=== PATIENT | female | born 1980 | race African-American/Black ===

== ENCOUNTER 2017-09-06 22:37 | Observation (INO) | payer SELFPAY ==
--- NOTE | 2017-09-06 22:57 | RAD ---
CHEST ONE VIEW 09/06/17 HISTORY: Chest pain. COMPARISON: None. FINDINGS: The heart size is markedly enlarged. No focal air space consolidation, pneumothorax or effusion. No a cute osseous abnormality. IMPRESSION: Marked cardiomegaly. POS: [facility]
[2017-09-06 23:12] LABS: Hemoglobin 10.7 g/dL (12.0-16.0); Mean Corpuscular HGB CONC 31.6 g/dL (32.0-36.0); Mean Corpuscular Hemoglobin 23.1 pg (27.0-31.0); Mean Corpuscular Volume 73.2 fl (81.0-99.0); Mean Platelet Volume 9.7 fL (7.4-10.4); Platelet Count 243 thou/uL (130-400); RBC Distribution Width 14.4 % (11.5-14.5); Red Blood Cell (RBC) Count 4.61 mill/uL (4.20-5.40); White Blood Cell (WBC) Count 6.4 thou/uL (4.8-10.8)
[2017-09-06] MEDS ORDERED: Nitroglycerin 2% Ointment 1 INCH/1 GM Packet ONE (23:24)
[2017-09-06] MEDS ORDERED: Nitroglycerin 0.4 MG TAB (25 Tab Bottle) ONE (23:24)
[2017-09-06 23:28] LABS: ALT (SGPT) 13 U/L (8-55); AST (SGOT) 21 U/L (5-34); Albumin 3.5 g/dL (3.5-5.0); Alkaline Phosphatase 80 U/L (40-150); Anion Gap 11 mmol/L (10-20); BUN (Urea Nitrogen) 9 mg/dL (7.0-18.7); Bilirubin, Total 0.2 mg/dL (0.2-1.2); CK (CPK) 55 U/L (29-168); Calc. Creatinine Clearance 0 mL/min (70-130); Calcium 8.3 mg/dL (7.8-10.44); Carbon Dioxide 23 mmol/L (22-29); Chloride 108 mmol/L (98-107); Estimated GFR-MDRD Greater than 90; Globulin 3.3 g/dL (2.4-3.5); Glucose 104 mg/dL (70-105); Lipase 90 U/L (8-78); Potassium 4.1 mmol/L (3.5-5.1); Protein, Total 6.8 g/dL (6.0-8.3); Sodium 138 mmol/L (136-145)
[2017-09-06 23:30] LABS: CKMB 0.8 ng/mL (0-6.6); Troponin I Less than 0.010 ng/mL (< 0.028)
[2017-09-06 23:51] LABS: #Eosinphils 0.2 thou/uL (0.0-0.7); #Lymphocytes 2.2 thou/uL (1.20-3.40); #Monocytes 0.4 thou/uL (0.11-0.59); #Neutrophils 3.6 thou/uL (1.40-6.50); %Basophils 0.6 % (0.0-1.0); %Eosinophils 2.8 % (0.0-10.0); %Lymphocytes 33.8 % (21.0-51.0); %Monocytes 5.7 % (0.0-10.0); %Neutrophils 57.1 % (42.0-75.0); MDiff Complete? YES; Microcytosis SLIGHT = 6-15 cells (100X) (0-5/hpf)
[2017-09-07] MEDS ORDERED: Lisinopril 10 MG TAB ONE (00:22)
[2017-09-07] MEDS ORDERED: hydrALAZINE 20 MG/ML VIAL ONE ×3 (00:22→12:19)
[2017-09-07] MEDS ORDERED: Acetaminophen 500 MG TAB ONE ×2 (00:35→04:59)
[2017-09-07] MEDS ORDERED: Labetalol HCl 100 MG/20 ML VIAL ONE (01:32)
[2017-09-07 03:03] LABS: Troponin I 0.026 ng/mL (< 0.028)
[2017-09-07] MEDS ORDERED: hydrALAZINE 20 MG/ML VIAL SLOW IVP PRN ×2 (04:59→07:41)
[2017-09-07 05:41] LABS: Troponin I 0.017 ng/mL (< 0.028)
[2017-09-07] MEDS ORDERED: Sodium Chloride 0.9% 1,000 ML IV SCH (05:48)
[2017-09-07] MEDS ORDERED: Acetaminophen 325 MG TAB PO PRN (05:48)
[2017-09-07] MEDS ORDERED: Guaifenesin DM 100-10/5 ML UDCUP PO PRN (05:48)
[2017-09-07] MEDS ORDERED: Ondansetron HCl/PF 4 MG/2 ML Vial IVP PRN (05:48)
[2017-09-07] MEDS ORDERED: Nitroglycerin 2% Ointment 1 INCH/1 GM Packet TOP SCH (06:00)
[2017-09-07 06:14] LABS: Cardiac Risk 2.3 (Less than 4.5)
[2017-09-07 06:15] LABS: Acetaminophen Less than 6.0 mcg/mL (10.0-30.0); Alcohol Less than 10 mg/dL (Less than 10); Salicylate Less than 8.0 mg/dL (15.0-30.0)
--- NOTE | 2017-09-07 07:03 | HP ---
REASON FOR ADMISSION: Hypertensive urgency, chest pain. HISTORY OF PRESENT ILLNESS: The patient gives history of having retrosternal chest pain with radiation to the left half of her chest which started around 3: 00 p.m. yesterday when she was taking a nap. This got worse with further tightening in her chest. She has cough with expectoration of yellow sputum. No complaints of fever. No complaints of palpitation, PND or orthopnea. As the chest tightness got worse the patient made it to the emergency room. PAST MEDICAL/SURGICAL HISTORY: History of hypertension, not on any medication, obesity. CURRENT MEDICATIONS: The patient is supposed to take her lisinopril and hydrochlorothiazide, has been off it for the last month or so. ALLERGIES: No known drug allergies. PERSONAL HISTORY: Smokes half pack a day. Uses marijuana on occasions, alcohol on social occasions. The patient states she stopped using cocaine a few months ago. She lives with her . Has 3 children. FAMILY HISTORY: Mother has high blood pressure. Father is healthy. REVIEW OF SYSTEMS: The following complete review of systems was negative, unless otherwise mentioned in the HPI or below: Constitutional: Weight loss or gain, ability to conduct usual activities. Skin: Rash, itching. Eyes: Double vision, pain. ENT/Mouth: Nose bleeding, neck stiffness, pain, tenderness. Cardiovascular: Palpitations, dyspnea on exertion, orthopnea. Respiratory: Shortness of breath, wheezing, cough, hemoptysis, fever or night sweats. Gastrointestinal: Poor appetite, abdominal pain, heartburn, nausea, vomiting, constipation, or diarrhea. Genitourinary: Urgency, frequency, dysuria, nocturia. Musculoskeletal: Pain, swelling. Neurologic/Psychiatric: Anxiety, depression. Allergy/Immunologic: Skin rash, bleeding tendency. PHYSICAL EXAMINATION: GENERAL: The patient is a 36-year-old female who is currently not in any acute distress. VITAL SIGNS: The patient's initial blood pressure reading on arrival was 237/ 129. Currently, it is around 170/109, pulse 82 per minute, respiratory rate 16 per minute, temperature 98.4 degrees Fahrenheit, saturating 100% on room air. NECK: Supple, no elevated JVD. HEENT: Eyes; extraocular muscles intact. Pupils reacting to light. Oral cavity; mucous membranes are moist. No exudates or congestion. CARDIOVASCULAR: S1, S2 heard. Loud S2, no murmur. RESPIRATORY: Air entry 1+ bilaterally. No rales or rhonchi. ABDOMEN: Soft, bowel sounds heard. No tenderness, rigidity or guarding. EXTREMITIES: No peripheral edema or calf tenderness. VASCULAR SYSTEM: Peripheral pulses 1+ bilateral, no ischemic ulcerations or gangrene. CENTRAL NERVOUS SYSTEM: No gross focal deficits seen. Patient is alert, awake , oriented well. PSYCHIATRIC: The patient's mood is euthymic. No hallucinations or delusions. LABORATORY AND X-RAY FINDINGS: Chest x-ray done shows marked cardiomegaly, no acute infiltrate. EKG done shows normal sinus rhythm at 89 beats per minute. There are signs of LVH. Troponin x2 is negative. CK-MB 0.8, albumin is 3.5. Lipase is 90. Liver enzymes are within normal limits. Electrolytes stable. BUN 9, creatinine 0.8, glucose 104. White count of 6, H&H 10 and 33, platelet count is 243 with 57% neutrophils, MCV is 73. CLINICAL IMPRESSION AND PLAN: The patient will be under observation on telemetry for hypertensive urgency with chest pain. The patient is off of her medications for almost a month now. The patient also admits to using marijuana and stopped cocaine a few months back. In view of this, we will obtain a urine drug screen. The patient has signs of LVH on the EKG. Echo with 2D Doppler for LV function will be obtained. A nuclear stress test will be obtained if her urine drug screen is negative. She is currently on nitro paste half inch q.8 hourly. We will continue her on lisinopril 10 mg twice daily and hydrochlorothiazide 25 mg daily. She will be on full dose of aspirin. The patient was counseled with regards to medication compliance and followup with her primary care physician. CODE STATUS: Full. This was discussed with the patient. DAHLIA
[2017-09-07 07:20] LABS: Cocaine Metabolite Screen Detected (NotDetected); Medtox Reader # READER 1
[2017-09-07 07:21] LABS: Amphetamine Not Detected (NotDetected); Barbiturates Screen Not Detected (NotDetected); Benzodiazepine Screen Not Detected (NotDetected); Medtox Control Line Valid? VALID (VALID); Methadone Not Detected (NotDetected); Methamphetamine Not Detected (NotDetected); Opiate Screen Not Detected (NotDetected); Oxycodone Screen Not Detected (NotDetected); Phencyclidine (PCP) Not Detected (NotDetected); THC/Cannabinoid Screen Detected (NotDetected); Tricyclic Screen Not Detected (NotDetected)
[2017-09-07] MEDS ORDERED: Sodium Chloride 0.65% Nasal 44 ML BOT EA NARE PRN (07:41)
[2017-09-07] MEDS ORDERED: Chloraseptic Spray 180 ml Bottle PO PRN (07:41)
[2017-09-07] MEDS ORDERED: Eucerin (Mineral Oil/Petrolatum,White) 30 gm Jar TOP PRN (07:41)
[2017-09-07] MEDS ORDERED: Diabetic Tussin 200 MG/10 ML UDCUP PO PRN (07:41)
[2017-09-07] MEDS ORDERED: Temazepam 15 MG CAP PO PRN (07:41)
[2017-09-07] MEDS ORDERED: Mag-Al 1200 mg/1200 mg/30 ML UDCUP PO PRN (07:41)
[2017-09-07] MEDS ORDERED: Milk Of Magnesia 30 ML UDCUP PO PRN (07:41)
[2017-09-07] MEDS ORDERED: Artificial Tears 18 DROP/0.9 ML EA EYE PRN (07:41)
[2017-09-07] MEDS ORDERED: Ondansetron ODT 4 MG TAB PO PRN (07:41)
[2017-09-07] MEDS ORDERED: HYDROcodone/Acetaminophen 5/325 mg Tablet PO PRN (07:41)
[2017-09-07] MEDS ORDERED: Ondansetron ODT 4 MG TAB ONE (07:41)
[2017-09-07] MEDS ORDERED: Loratadine 10 MG TAB PO PRN (07:41)
[2017-09-07] MEDS ORDERED: Loperamide HCl 2 MG CAP PO PRN (07:41)
[2017-09-07] MEDS ORDERED: Aspirin 325 MG TAB PO SCH (09:00)
[2017-09-07] MEDS ORDERED: Aspirin 325 MG TAB ONE (09:18)
[2017-09-07] MEDS ORDERED: Enoxaparin Sodium 40 MG/0.4 ML SYRINGE ONE (09:18)
[2017-09-07] MEDS ORDERED: Famotidine 20 MG TAB ONE (09:18)
[2017-09-07] MEDS ORDERED: Sodium Ferric Gluconate 250 MG in Sodium Chloride 0.9% 100 ML IVPB SCH (11:15)
--- NOTE | 2017-09-07 12:37 | PDOC.PN ---
- Subjective Encounter Start Date: 09/07/17 Encounter Start Time: 09:45 -: old records requested/rev Patient seen and examined for hypertensive urgency. No new complaints. No overnight events - Objective Resuscitation Status: Resuscitation Status FULL:Full Resuscitation MAR Reviewed: Yes Result Diagrams: 09/06/17 22:51 09/06/17 22:51 Radiology Reviewed by me: Yes (chest xray- cardiomegaly, left ankle xray-normal) EKG Reviewed by me: Yes (nsr) Phys Exam - Physical Examination Constitutional: NAD HEENT: PERRLA, moist MMs, sclera anicteric Neck: no nodes, no JVD, supple, full ROM Respiratory: no wheezing, no rales, no rhonchi Cardiovascular: RRR, no significant murmur, no rub Gastrointestinal: soft, non-tender, no distention, positive bowel sounds Musculoskeletal: no edema, pulses present Neurological: non-focal, normal sensation, moves all 4 limbs Lymphatic: no nodes Psychiatric: normal affect, A&O x 3 Skin: no rash, normal turgor, cap refill <2 seconds Dx/Plan (1) Hypertensive urgency Code(s): I16.0 - HYPERTENSIVE URGENCY Status: Acute (2) Hypertensive cardiomegaly Code(s): I11.9 - HYPERTENSIVE HEART DISEASE WITHOUT HEART FAILURE Status: Acute (3) Left ankle sprain Code(s): S93.402A - SPRAIN OF UNSPECIFIED LIGAMENT OF LEFT ANKLE, INIT ENCNTR Status: Acute (4) Microcytic anemia Code(s): D50.9 - IRON DEFICIENCY ANEMIA, UNSPECIFIED Status: Chronic Comment : iron deficiency anemia (5) Polysubstance abuse Code(s): F19.10 - OTHER PSYCHOACTIVE SUBSTANCE ABUSE, UNCOMPLICATED Status: Chronic - Plan cont current plan of care * continue pain control with prn pain meds * will monitor blood pressure and adjust BP meds * counselling given regarding healthy life style and avoidance of polysubstance abuse including tobacco, alcohol, coccaine and marijuanna * medication reviewed as below * symptomatic treatment * today plan for stress test * echo pending result * ferritin checked and low, will start ferrous sulfate bid and give one dose of parenteral iron * check lipid profile * monitor today. * will give prescription for lisinopril 20/25 daily * clonidine prn basis Review of Systems - Review of Systems Constitutional: negative: fever, chills, sweats, weakness, malaise, other Eyes: negative: Pain, Vision Change, Conjunctivae Inflammation, Eyelid Inflammation, Redness, Other ENT: negative: Ear Pain, Ear Discharge, Nose Pain, Nose Discharge, Nose Congestion, Mouth Pain, Mouth Swelling, Throat Pain, Throat Swelling, Other Respiratory: negative: Cough, Dry, Shortness of Breath, Hemoptysis, SOB with Excertion, Pleuritic Pain, Sputum, Wheezing Cardiovascular: chest pain. negative: palpitations, orthopnea, paroxysmal nocturnal dyspnea, edema, light headedness, other Gastrointestinal: Nausea. negative: Vomiting, Abdominal Pain, Diarrhea, Constipation, Melena, Hematochezia, Other Genitourinary: negative: Dysuria, Frequency, Incontinence, Hematuria, Retention , Other Musculoskeletal: Other (left ankle). negative: Neck Pain, Shoulder Pain, Arm Pain, Back Pain, Hand Pain, Leg Pain, Foot Pain Skin: negative: Rash, Lesions, Eduard, Bruising, Other Neurological: Other (headache). negative: Weakness, Numbness, Incoordination, Change in Speech, Confusion, Seizures - Medications/Allergies Allergies/Adverse Reactions: Allergies Allergy/AdvReac Type Severity Reaction Status Date / Time No Known Drug Allergies Allergy Verified 09/07/17 04:57 Medications: Current Medications Acetaminophen (Tylenol) 650 mg PO Q4H PRN PRN Reason: Headache/Fever or Pain Hydrocodone Bitart/Acetaminophen ([place] 5/325) 1 tab PO Q4H PRN PRN Reason: Moderate Pain (4-6) Al Hydroxide/Mg Hydroxide (Maalox) 15 ml PO Q4H PRN PRN Reason: Heartburn or Indigestion Artificial Tears (Tears Naturale) 0 drop EA EYE PRN PRN PRN Reason: Dry Eyes Aspirin (Aspirin) 325 mg PO DAILY [facility] Clonidine (Catapres) 0.1 mg PO Q4H PRN PRN Reason: Systolic BP > 180 Docusate Sodium (Colace) 100 mg PO BID [facility] Enoxaparin Sodium (Lovenox) 40 mg SC 0900 [facility] Famotidine (Pepcid) 20 mg PO BID [facility] Ferrous Sulfate (Feosol) 325 mg PO BID-[facility] Guaifenesin (Robitussin Sf) 200 mg PO Q4H PRN PRN Reason: Cough Guaifenesin/Dextromethorphan (Robitussin Dm) 15 ml PO Q4H PRN PRN Reason: Cough Hydralazine HCl (Apresoline) 10 mg SLOW IVP Q4H PRN PRN Reason: Systolic BP > 180 Hydrochlorothiazide (Hydrochlorothiazide) 25 mg PO DAILY [facility] Ferric Sodium Gluconate Complex 250 mg/ Sodium Chloride 120 mls @ 60 mls/hr IVPB NOW [facility] Stop: 09/07/17 14:00 Lisinopril (Zestril) 10 mg PO BID [facility] Loperamide HCl (Imodium) 2 mg PO PRN PRN PRN Reason: Diarrhea/Loose Stools Loratadine (Claritin) 10 mg PO DAILYPRN PRN PRN Reason: Sinus Symptoms Magnesium Hydroxide (Milk Of Magnesium) 30 ml PO DAILYPRN PRN PRN Reason: Constipation Mineral Oil/White Petrolatum (Eucerin Cream) 0 gm TOP BIDPRN PRN PRN Reason: Dry Skin Nitroglycerin (Nitro-Bid 2% Ointment) 0.5 inch TOP Q8HR [facility] Ondansetron HCl (Zofran) 4 mg IVP Q6H PRN PRN Reason: Nausea/Vomiting Ondansetron HCl (Zofran Odt) 4 mg PO Q6H PRN PRN Reason: Nausea/Vomiting Phenol (Chloraseptic Powersite 180 Ml Bot) 0 ml PO PRN PRN PRN Reason: Sore Throat Sodium Chloride ([place] Nasal Powersite 0.65%) 0 ml EA NARE QIDPRN PRN PRN Reason: Nasal Congestion Sodium Chloride (Flush - Normal Saline) 10 ml IVF Q12HR [facility] Sodium Chloride (Flush - Normal Saline) 10 ml IVF PRN PRN PRN Reason: Saline Flush Temazepam (Restoril) 15 mg PO HSPRN PRN PRN Reason: Insomnia History of Present Illnes - History of Present Illness Reason for Visit: admited for hypertensive urgency History of Present Illness: Bird presents to the ED with c/o CP, since 1600. Pain is dull in nature, described as aching and states pain is relieved with holding her chest his her hand, localized, most severe in the left upper chest, She denies any radiation of pain. she reports severity of pain rated as 8/10. She reports pain has gotten gradually worse since. She states that she is suppose to take HTN medications but she hasn't been taking them x1 month due to financial instability. She reports mild CRESPO and nausea. She denies SOB. - Past Medical History Cardiac: HTN Psych: Anxiety, Addictions, Depression - Past Surgical History Past Surgical History: None - Past Family History Family History: None - Past Social History Smoke: 1 pack per day Alcohol: Rare Drugs: Cocaine, Marijuana Lives: With Family Domestic Violence: Negative
[2017-09-07 13:46] VITALS: BMI 39.4
[2017-09-07] MEDS ORDERED: ADENOSINE 60 MG/20 ML VIAL ONE (13:53)
[2017-09-07] MEDS: Nitroglycerin 2% Ointment 1 INCH/1 GM Packet TOP SCH ×4 (14:10→20:12)
[2017-09-07] MEDS: Ferrous Sulfate 325 MG TAB PO SCH ×2 (14:11→17:46)
[2017-09-07] MEDS: Aspirin 325 MG TAB PO SCH (14:11)
[2017-09-07] MEDS: Docusate 100 MG CAP PO SCH ×2 (14:12→20:05)
[2017-09-07] MEDS: Enoxaparin Sodium 40 MG/0.4 ML SYRINGE SC SCH (14:12)
[2017-09-07] MEDS: Hydrochlorothiazide 25 MG TAB PO SCH (14:13)
[2017-09-07] MEDS: Lisinopril 10 MG TAB PO SCH ×2 (14:13→20:06)
[2017-09-07] MEDS: Famotidine 20 MG TAB PO SCH ×2 (14:13→20:06)
[2017-09-07] MEDS: cloNIDine 0.1 MG TAB PO PRN ×2 (14:22→21:53)
[2017-09-08 05:25] LABS: #Eosinphils 0.2 thou/uL (0.0-0.7); #Lymphocytes 2.1 thou/uL (1.20-3.40); #Monocytes 0.4 thou/uL (0.11-0.59); #Neutrophils 3.3 thou/uL (1.40-6.50); %Basophils 0.8 % (0.0-1.0); %Eosinophils 3.3 % (0.0-10.0); %Lymphocytes 34.9 % (21.0-51.0); %Monocytes 6.8 % (0.0-10.0); %Neutrophils 54.2 % (42.0-75.0); Hemoglobin 9.4 g/dL (12.0-16.0); Mean Corpuscular Volume 74.1 fl (81.0-99.0); Mean Platelet Volume 9.8 fL (7.4-10.4); Platelet Count 214 thou/uL (130-400); RBC Distribution Width 14.5 % (11.5-14.5); Red Blood Cell (RBC) Count 4.09 mill/uL (4.20-5.40)
[2017-09-08 06:17] LABS: Anion Gap 10 mmol/L (10-20); BUN (Urea Nitrogen) 7 mg/dL (7.0-18.7); Calc. Creatinine Clearance 190 mL/min (70-130); Calcium 8.5 mg/dL (7.8-10.44); Carbon Dioxide 27 mmol/L (22-29); Chloride 105 mmol/L (98-107); Estimated GFR-MDRD Greater than 90; Glucose 92 mg/dL (70-105); Sodium 138 mmol/L (136-145)
[2017-09-08] MEDS: Aspirin 325 MG TAB PO SCH (07:51)
[2017-09-08] MEDS: Ferrous Sulfate 325 MG TAB PO SCH (07:51)
[2017-09-08] MEDS: Docusate 100 MG CAP PO SCH (07:51)
[2017-09-08] MEDS: Famotidine 20 MG TAB PO SCH (07:52)
[2017-09-08] MEDS: Enoxaparin Sodium 40 MG/0.4 ML SYRINGE SC SCH (07:53)
[2017-09-08] MEDS: Hydrochlorothiazide 25 MG TAB PO SCH (08:00)
[2017-09-08] MEDS: Lisinopril 10 MG TAB PO SCH (08:00)
[2017-09-08] MEDS ORDERED: Amlodipine 10 MG TAB PO SCH (09:00)
--- NOTE | 2017-09-08 12:13 | NM ---
NUCLEAR MEDICINE CARDIAC PERFUSION EXAMINATION WITH EJECTION FRACTION: HISTORY: A 36-year-old female with chest pain and hypertension. TECHNIQUE: A 2-day nuclear medicine cardiac perfusion examination was performed. Rest images were obtained usin g 32 mCi of Technetium 99m sestamibi. Stress images were obtained using 33 mCi of Technetium 99m ses tamibi and adenosine. FINDINGS: Tomographic images showed no fixed or reversible perfusion defects. Gated images show normal wall mo tion with an ejection fraction of 44%. EDV is 216 mL. LHR is 0.4. TID is 1.0. IMPRESSION: 1. No evidence of ischemia. 2. Slightly low ejection fraction. POS: [facility]
[2017-09-08 12:18] VITALS: TEMP 98
--- NOTE | 2017-09-08 12:33 | DIS ---
DATE OF ADMISSION: 09/07/2017 DATE OF DISCHARGE: 09/08/2017 PRIMARY CARE PHYSICIAN: [facility]. DISCHARGE DISPOSITION: Home. PRIMARY DISCHARGE DIAGNOSES: 1. Left ankle sprain. 2. Chest pain, ruled out acute coronary syndrome. 3. Hypertensive urgency. 4. Hypertensive cardiomegaly. 5. Left ventricular hypertrophy due to hypertensive heart disease. 6. Moderate mitral regurgitation. 7. Severe tricuspid regurgitation. 8. Chronic iron deficiency. 9. Anemia. 10. Polysubstance abuse. SECONDARY DISCHARGE DIAGNOSES: Noncompliance with medication, polysubstance abuse and chronic iron d eficiency anemia, and obesity with BMI 39. PRIMARY PROCEDURES/OPERATIONS: None. RADIOLOGICAL INVESTIGATION: Chest x-ray showed cardiomegaly. Stress test negative for any reversibl e ischemia. Echocardiography showed LVH, moderate mitral regurgitation, severe tricuspid regurgitati on. SIGNIFICANT LABORATORY DATA: WBC 6.0, hemoglobin 9.4, platelet 214. Sodium 138, potassium 4.0, BUN 7, creatinine 0.82, calcium 8.5. Cardiac enzymes negative x3. Ferritin 7.73, LDL 46. Lipase 90. U rine drug screen positive for cocaine and cannabinoids. Serum drug screen negative. DISCHARGE MEDICATIONS: Amlodipine 10 mg p.o. daily, Prinzide 20/25 one tablet p.o. daily in the even ing, ferrous sulfate 325 mg p.o. b.i.d., clonidine 0.1 mg p.o. q.6 h. p.r.n. for blood pressure more than 160. CONTRAINDICATIONS: None. CODE STATUS: FULL CODE. INPATIENT CONSULTANTS: None. ALLERGIES: No known drug allergy. DISCHARGE PLAN: Post hospital, the patient is instructed to keep checking blood pressure at home and keep diary of blood pressure and follow up with primary care physician in 1 week. HOSPITAL COURSE: A 36-year-old female who has history of hypertension, but she was not taking any bl ood pressure medication because of financial reasons. This patient was presented to emergency room w ith complaint of chest pain. She was having hypertensive urgency. Her blood pressure was very high in the emergency room. She had negative cardiac enzyme. Her EKG was showing LVH. We did a chest x- ray which showed cardiomegaly. We did echocardiography which showed LVH, moderate MR and severe tric uspid regurgitation with normal EF. We did serial cardiac enzymes that were negative. Patient was o bserved on telemetry floor. We did a stress test that came back negative for any reversible ischemia . Her urine drug screen was positive for cocaine, marijuana, and that is why we provided patient edu cation to avoid any illicit drug abuse. Healthy lifestyle measures discussed with the patient. The patient is given dietary education. The patient is doing very well. Currently, she is asymptoma tic. The patient is seen and examined at bedside today. VITAL SIGNS: Temperature 97.7, pulse 75, respiratory rate 18, blood pressure 166/98, weight 275 poun ds. GENERAL: The patient is currently alert, awake, no obvious acute distress. HEAD: Normocephalic, atraumatic. EYES: Pupils round, reactive to light. Extraocular muscle intact. ENT: Oropharynx within normal limits. Moist mucous membranes. No oral lesion, no pharyngeal erythe ma, no exudate. NECK: Supple, no JVD, no thyromegaly, no carotid bruits. No jugular venous distention. LUNGS: Clear to auscultation without any rhonchi or rales. CARDIAC: S1, S2 regular without any significant murmur. ABDOMEN: Soft and benign. EXTREMITIES: No edema. NEUROLOGIC: Nonfocal examination. Overall, patient is medically stable for discharge today.
[2017-09-08 12:50] VITALS: BP 177/98
--- NOTE | 2017-09-10 15:23 | EKG ---
Test Reason : Blood Pressure : / mmHG Vent. Rate : 089 BPM Atrial Rate : 089 BPM P-R Int : 158 ms QRS Dur : 102 ms QT Int : 374 ms P-R-T Axes : 006 045 120 degrees QTc Int : 455 ms Normal sinus rhythm Possible Left atrial enlargement Left ventricular hypertrophy with repolarization abnormality Abnormal ECG Confirmed by SHIRLEY DIXON, TIARRA Vences ([id number]), graphics editor ANKUR SERRANO ([id number]) on 09/10/2017 3:22:47 PM Referred By: Confirmed By:TIARRA WATSON MD
== END 2017-09-08 13:02 | disposition home or self-care (01) ==
LOC: ERS 22:37 → ERHOLD 09-07 00:23 → 2SW 09-07 13:38
PROVIDERS: ADMIT Internal Medicine; ATTEND Internal Medicine
DX: R07.89 Other chest pain (principal); I16.0 Hypertensive urgency; I11.9 Hypertensive heart disease without heart failure; I34.0 Nonrheumatic mitral (valve) insufficiency; I36.1 Nonrheumatic tricuspid (valve) insufficiency; D50.9 Iron deficiency anemia, unspecified; S93.402A Sprain of unspecified ligament of left ankle, initial encounter; F17.210 Nicotine dependence, cigarettes, uncomplicated; F41.9 Anxiety disorder, unspecified; F32.9 Major depressive disorder, single episode, unspecified; F14.10 Cocaine abuse, uncomplicated; E66.9 Obesity, unspecified; Z68.39 Body mass index [BMI] 39.0-39.9, adult; Z79.899 Other long term (current) drug therapy; Z91.14 Patient's other noncompliance with medication regimen
CPT/HCPCS: 36415; 71045; 78452; 80048; 80053; 80061; 80306; 80307; 82550; 82553; 82728; 83690; 84484; 85025; 93005; 93017; 93306; 94760; 96365; 96366; 96372; 96374; 96375; 96376; 99406; A4216; A9500; G0378; J0153; J0360; J1650; J2916; J7050; Q0162

== ENCOUNTER 2017-12-19 22:42 | Inpatient (IN) | payer SELFPAY ==
[2017-12-19 23:28] LABS: #Basophils 0.1 thou/uL (0.0-0.2); #Eosinphils 0.6 thou/uL (0.0-0.7); #Lymphocytes 2.1 thou/uL (1.20-3.40); #Monocytes 0.5 thou/uL (0.11-0.59); #Neutrophils 4.9 thou/uL (1.40-6.50); %Basophils 0.7 % (0.0-1.0); %Eosinophils 6.9 % (0.0-10.0); %Monocytes 6.5 % (0.0-10.0); %Neutrophils 59.9 % (42.0-75.0); Hemoglobin 11.8 g/dL (12.0-16.0); Mean Corpuscular HGB CONC 33.9 g/dL (32.0-36.0); Mean Corpuscular Hemoglobin 26.3 pg (27.0-31.0); Mean Corpuscular Volume 77.6 fL (78.0-98.0); Mean Platelet Volume 9.8 fL (7.4-10.4); Platelet Count 167 thou/uL (130-400); RBC Distribution Width 14.9 % (11.5-14.5); Red Blood Cell (RBC) Count 4.48 mill/uL (4.20-5.40); White Blood Cell (WBC) Count 8.2 thou/uL (4.8-10.8)
[2017-12-19] MEDS ORDERED: hydrALAZINE 20 MG/ML VIAL ONE (23:28)
--- NOTE | 2017-12-19 23:43 | CT ---
CT HEAD NONCONTRAST: HISTORY: Altered mental status. COMPARISON: None. FINDINGS: There is no evidence of acute intracranial hemorrhage or infarct. The ventricles appear normal in si ze, shape, and position. Within the high posterior frontal white matter, an ill defined, oval, 1.2 c m area of decreased density approaches the zuluaga-white junction. Less prominent and striking areas of decreased density are scattered elsewhere throughout the white matter of each cerebral hemisphere. The visualized paranasal sinuses remain well aerated. IMPRESSION: Suspected bilateral white matter disease, including a most conspicuous left frontoparietal peripheral lesion. Considerations would include a demyelinating process, a chronic vascular process, or a neop lastic process. Please consider nonemergent MRI brain with and without Gadolinium contrast, for better characterizati on. POS: [facility]
[2017-12-19 23:50] LABS: ALT (SGPT) 11 U/L (8-55); AST (SGOT) 18 U/L (5-34); Albumin 3.8 g/dL (3.5-5.0); Alkaline Phosphatase 71 U/L (40-150); Anion Gap 14 mmol/L (10-20); BUN (Urea Nitrogen) 8 mg/dL (7.0-18.7); Bilirubin, Total 0.4 mg/dL (0.2-1.2); Calc. Creatinine Clearance 0 mL/min (70-130); Calcium 8.6 mg/dL (7.8-10.44); Carbon Dioxide 21 mmol/L (22-29); Chloride 106 mmol/L (98-107); Estimated GFR-MDRD Greater than 90; Globulin 3.2 g/dL (2.4-3.5); Glucose 113 mg/dL (70-105); Potassium 3.5 mmol/L (3.5-5.1); Sodium 137 mmol/L (136-145)
[2017-12-20] LABS: BHCG - Serum Negative (NEGATIVE); Pregs Control Background? CLEAR/WHITE (CLR/WHITE); Pregs Control Bar Appear? YES (CONTROL BAR)
[2017-12-20 00:06] LABS: Alcohol Less than 10 mg/dL (Less than 10); Salicylate Less than 8.0 mg/dL (15.0-30.0)
[2017-12-20 00:17] LABS: PTT 30.3 SEC (22.9-36.1); Prothrombin Time 13.6 SEC (12.0-14.7)
[2017-12-20] MEDS ORDERED: cloNIDine 0.1 MG TAB ONE (00:33)
[2017-12-20 00:35] LABS: Bilirubin Negative (Negative); Blood, Urine Large (Negative); Clarity CLEAR (Clear); Glucose, Urine (Dipstick) Negative (Negative); Leukocyte Negative (Negative); Nitrite Negative (Negative); Protein, Urine (Dipstick) Negative (Neg-Trace); Specific Gravity, Urine 1.011 (1.002-1.036)
[2017-12-20 00:38] LABS: Bacteria/HPF None Seen HPF (None Seen); Hyaline Casts/LPF 0-3 HYALINE CAST LPF (0-3 Hyaline); Pathc Cast-AUWi Flag 0.29 (0-2.49); RBC/HPF GREATER THAN 50-TNTC HPF (0-3); Squamous Epithelial 0-3 HPF (0-3); WBC/HPF 0-3 HPF (0-3)
[2017-12-20 00:43] LABS: Amphetamine Not Detected (NotDetected); Barbiturates Screen Not Detected (NotDetected); Benzodiazepine Screen Not Detected (NotDetected); Cocaine Metabolite Screen Detected (NotDetected); Medtox Control Line Valid? VALID (VALID); Medtox Reader # READER 1; Methadone Not Detected (NotDetected); Methamphetamine Detected (NotDetected); Opiate Screen Not Detected (NotDetected); Oxycodone Screen Not Detected (NotDetected); Phencyclidine (PCP) Not Detected (NotDetected); THC/Cannabinoid Screen Detected (NotDetected); Tricyclic Screen Not Detected (NotDetected)
[2017-12-20] MEDS ORDERED: niCARdipine 20MG In NaCl 20 MG/200 ML BAG ONE (00:57)
[2017-12-20] MEDS ORDERED: HYDROcodone/Acetaminophen 5/325 mg Tablet PO PRN (03:03)
[2017-12-20] MEDS ORDERED: Loratadine 10 MG TAB PO PRN (03:03)
[2017-12-20] MEDS ORDERED: Chloraseptic Spray 180 ml Bottle PO PRN (03:03)
[2017-12-20] MEDS ORDERED: Mag-Al 1200 mg/1200 mg/30 ML UDCUP PO PRN (03:03)
[2017-12-20] MEDS ORDERED: Diabetic Tussin 200 MG/10 ML UDCUP PO PRN (03:03)
[2017-12-20] MEDS ORDERED: Lorazepam 1 MG TAB PO PRN (03:03)
[2017-12-20] MEDS ORDERED: Eucerin (Mineral Oil/Petrolatum,White) 30 gm Jar TOP PRN (03:03)
[2017-12-20] MEDS ORDERED: Sodium Chloride 0.65% Nasal 44 ML BOT EA NARE PRN (03:03)
[2017-12-20] MEDS ORDERED: Artificial Tears 18 DROP/0.9 ML EA EYE PRN (03:03)
[2017-12-20] MEDS ORDERED: hydrALAZINE 20 MG/ML VIAL SLOW IVP PRN (03:03)
[2017-12-20] MEDS ORDERED: Zolpidem Tartrate 5 MG TAB PO PRN (03:03)
[2017-12-20] MEDS ORDERED: Milk Of Magnesia 30 ML UDCUP PO PRN (03:03)
[2017-12-20] MEDS ORDERED: Loperamide HCl 2 MG CAP PO PRN (03:03)
[2017-12-20] MEDS ORDERED: Senokot 8.6 MG TAB PO PRN (03:03)
--- NOTE | 2017-12-20 03:19 | HP ---
PRIMARY CARE PHYSICIAN: [facility]. REASON FOR ADMISSION: Hypertensive urgency, polysubstance abuse. HISTORY OF PRESENT ILLNESS: A 36-year-old -[place] female who has underlying history of hype rtension as well as polysubstance abuse who was brought to emergency room by paramedics. Patient pa led the paramedics subsequently, initially she refused to come to the hospital. She was having twitc alexy and eye pain and headache. Her blood pressure was very high. She was not taking any blood pres sure medication. Patient admitted marijuana abuse to the paramedics. When she came to emergency [facility], patient's blood pressure was 252/159. She was tachycardic. Patient was going to sleep when we we re getting history. History was not reliable from the patient, she was arousable, but she was going very quickly to sleep. Patient was complaining of headache and that is why CT brain was done which w as negative for any hemorrhage, but it showed bilateral white matter disease including most conspicuo us left frontoparietal peripheral lesion. In the emergency room, patient's blood pressure was so hig h, that is why initially Cardene drip was started, but after starting Cardene drip, patient's blood p ressure smoothly improved. At that point, we discontinue Cardene drip and decided to admit this brittny ent to telemetry floor. Initially, patient was planned for IMCU admission, but as patient was no nyla lane requiring Cardene drip, we decided to keep this patient on telemetry floor. Patient is a very poor historian at this point, because of her sleepiness. REVIEW OF SYSTEMS: The following complete review of systems was negative, unless otherwise mentioned in the HPI or below: Constitutional: Weight loss or gain, ability to conduct usual activities. Sk in: Rash, itching. Eyes: Double vision, pain. ENT/Mouth: Nose bleeding, neck stiffness, pain, te nderness. Cardiovascular: Palpitations, dyspnea on exertion, orthopnea. Respiratory: Shortness of breath, wheezing, cough, hemoptysis, fever or night sweats. Gastrointestinal: Poor appetite, abdom inal pain, heartburn, nausea, vomiting, constipation, or diarrhea. Genitourinary: Urgency, frequenc y, dysuria, nocturia. Musculoskeletal: Pain, swelling. Neurologic/Psychiatric: Anxiety, depressio n. Allergy/Immunologic: Skin rash, bleeding tendency. Please see my HPI for pertinent positive and negative. All other review of systems reviewed and negative except as mentioned in the HPI. Above-m entioned review of systems is also not reliable because of patient's current mental status with sleep iness. PAST MEDICAL HISTORY: Hypertension, medication noncompliance, polysubstance abuse, morbid obesity. PAST SURGICAL HISTORY: Reviewed and negative. PAST PSYCHIATRIC HISTORY: Anxiety and depression, polysubstance abuse. SOCIAL HISTORY: The patient is abusing cocaine. The patient is abusing marijuana. She smokes about half pack per day. She drinks alcohol every week. FAMILY HISTORY: Positive for hypertension to her mother. EMERGENCY ROOM COURSE: Patient was given initially Cardene drip, Catapres 0.2 mg and hydralazine 20 mg. ALLERGIES: No known drug allergies. CURRENT HOME MEDICATIONS: Patient is not taking any prescribed or non-prescribed medication. PHYSICAL EXAMINATION: VITAL SIGNS: Blood pressure of 252/159, pulse 98, respiratory rate 22, temperature 98.7, saturation 98% on room air, weight 122.4 kilograms. GENERAL: Patient is sleepy, arousable, follows simple command. No obvious acute distress. HEENT: Head, normocephalic, atraumatic. Eyes: Pupils round, reactive to light. Nystagmus noted. Extraocular muscles intact. Conjunctivae normal. Sclerae normal. ENT: Oropharynx within normal li mits. Moist mucous membranes, no oral lesion. No pharyngeal erythema, no exudate. NECK: Supple, no JVD, no thyromegaly, no carotid bruit. LUNGS: Clear to auscultation without any rhonchi or rales. CARDIAC: S1, S2 appears regular without any significant murmur. Tachycardia. ABDOMEN: Soft, bowel sounds present, nontender, nondistended. No organomegaly, no mass, no suprapub ic tenderness. BACK: Unremarkable, no CVA tenderness. EXTREMITIES: Upper extremity passive movement of all joints are normal. Lower extremities: No toby a. Good peripheral pulsation. SKIN: No skin rash. HEMATOLOGICAL: No lymphadenopathy. PSYCHIATRIC: Normal affect. SIGNIFICANT LABORATORY DATA: EKG showing normal sinus rhythm, sinus tachycardia. CT brain showing b ilateral white matter disease, most conspicuous left parieto-frontal peripheral lesion. Differential diagnosis of demyelinating process, chronic vascular process neoplastic process. CBC: WBC 8.2, hem oglobin 11.8, platelet 167, MCV 77.6. INR 1.0. BMP shows sodium 137, potassium 3.5, chloride 106, c arbon dioxide 21, anion gap 14, BUN 8, creatinine 0.85, glucose 113, calcium 8.6. LFT: AST 18, ALT 11, alkaline phosphatase 71, albumin 3.8. test negative. Urinalysis hematuria. Urine antonia g screen positive for methamphetamine, cocaine and cannabinoids. Serum drug screen unremarkable. ASSESSMENT AND PLAN: 1. Altered mental status due to hypertensive urgency (hypertensive encephalopathy). Patient's CT br ain does not show any hemorrhage. She does have ischemic white matter changes. We will consult Neur ology for their opinion because white matter changes seen in the CT brain has differential diagnosis of demyelinating process, chronic ischemic white matter changes versus neoplastic process. We will m onitor on telemetry floor. At this point, the patient does not have any focal neurological deficit. 2. Hypertensive emergency. The patient will be admitted to telemetry floor. At this point, the pat shea required a Cardene drip in the emergency room, but with that, patient's blood pressure is smooth ly recovered very well. Now, this patient is off on Cardene drip and that is why we will keep this p atient on telemetry floor. Patient's blood pressure is high because of her polysubstance abuse. We will continue to give her periodically hydralazine, clonidine, and we will start nitropatch q.8 hourl y along with Procardia-XL 30 mg p.o. daily and Prinzide 20/25 one tablet p.o. daily. We will titrate her blood pressure medication depending upon requirement. Patient is also very noncompliant that ma kes this problem very difficult to control forever. 3. Polysubstance abuse. Patient is a smoker, alcohol abuser, cocaine, methamphetamine and marijuana . The patient will be given some counseling to avoid all these illicit drugs. 4. Microcytic iron deficiency anemia. We will continue ferrous sulfate 325 mg p.o. daily. 5. Microscopic hematuria, likely related with uncontrolled hypertension. 6. Morbid obesity. Dietary education given, weight loss education given. Healthy lifestyle measure s discussed with the patient. 7. Medication noncompliance. The patient is given education about compliance with medical therapy. 8. Deep venous thrombosis prophylaxis. Sequential compression device boots. We will avoid heparin products because of uncontrolled hypertension. 9. Gastrointestinal prophylaxis, Pepcid 20 mg p.o. b.i.d. 10. Code status: The patient is FULL CODE. Patient does not have any surrogate decision maker. Disposition plan based on clinical course. We are expecting patient's stay in hospital more than 2 m idnights. Plan of care discussed with the patient.
[2017-12-20 03:33] LABS: #Eosinphils 0.5 thou/uL (0.0-0.7); #Lymphocytes 2.1 thou/uL (1.20-3.40); #Monocytes 0.4 thou/uL (0.11-0.59); #Neutrophils 3.8 thou/uL (1.40-6.50); %Basophils 0.3 % (0.0-1.0); %Eosinophils 7.9 % (0.0-10.0); %Lymphocytes 30.4 % (21.0-51.0); %Monocytes 5.7 % (0.0-10.0); %Neutrophils 55.7 % (42.0-75.0); Hemoglobin 11.9 g/dL (12.0-16.0); Mean Corpuscular HGB CONC 33.7 g/dL (32.0-36.0); Mean Corpuscular Hemoglobin 26.4 pg (27.0-31.0); Mean Corpuscular Volume 78.3 fL (78.0-98.0); Mean Platelet Volume 10.2 fL (7.4-10.4); Platelet Count 180 thou/uL (130-400); Red Blood Cell (RBC) Count 4.52 mill/uL (4.20-5.40); White Blood Cell (WBC) Count 6.8 thou/uL (4.8-10.8)
[2017-12-20 03:47] VITALS: BMI 41.4
[2017-12-20 03:54] LABS: Anion Gap 13 mmol/L (10-20); BUN (Urea Nitrogen) 7 mg/dL (7.0-18.7); Calc. Creatinine Clearance 204 mL/min (70-130); Calcium 8.5 mg/dL (7.8-10.44); Carbon Dioxide 18 mmol/L (22-29); Chloride 107 mmol/L (98-107); Estimated GFR-MDRD Greater than 90; Glucose 144 mg/dL (70-105); Potassium 3.4 mmol/L (3.5-5.1); Sodium 135 mmol/L (136-145)
[2017-12-20] MEDS ORDERED: Potassium Chloride 20 MEQ TAB PO SCH (04:15)
[2017-12-20] MEDS: Nitroglycerin 2% Ointment 1 INCH/1 GM Packet TOP SCH ×3 (05:22→20:05)
[2017-12-20] MEDS: Ferrous Sulfate 325 MG TAB PO SCH (08:38)
[2017-12-20] MEDS: Famotidine 20 MG TAB PO SCH ×2 (08:38→20:05)
[2017-12-20] MEDS: NIFEdipine XL 30 MG TAB PO SCH (08:38)
[2017-12-20] MEDS: Acetaminophen 325 MG TAB PO PRN (08:42)
[2017-12-20] MEDS ORDERED: Lisinopril/Hydrochlorothiazide 20/25 mg Tablet PO SCH (09:00)
--- NOTE | 2017-12-20 11:10 | MRI ---
MRI BRAIN WITH AND WITHOUT CONTRAST: HISTORY: Altered mental status. White matter lesion. FINDINGS: There are multifocal white matter signal abnormalities of each cerebral hemisphere without evidence o f mass effect or midline shift. There is no ventriculomegaly. No acute territorial infarction or ev idence of parenchymal hemorrhagic susceptibility. No pathologic enhancing intraaxial lesions. There is a partial empty sella. Scattered paranasal sinus opacification is present. The imaged skull bas e flow voids are patent. There is motion artifact, which limits assessment. IMPRESSION: Multifocal white matter signal abnormalities, with a confluent signal abnormality of the left parieta l, periventricular white matter, which does account for the recent CT hypodensity. Findings may repr esent demyelinating plaques related to multiple sclerosis. There is no pathologic enhancement to con firm active demyelination. Additional etiologies, including vasculitis/vasculopathy or infectious/in flammatory foci are not entirely excluded. Recommend correlation with CSF analysis and neurology con sultation for further assessment. POS: [facility]
[2017-12-20] MEDS: cloNIDine 0.1 MG TAB PO PRN (13:20)
--- NOTE | 2017-12-20 14:09 | PDOC.EVN ---
Event Note - Event Note Event Note: Pt seen and examined. AAOX3 for now,though still seems hyperactive from recent meth use Dad at bedside. care discussed in detail.chart reviewed in detail Feels better CTA b/L RR Neurological exam non focal Brain CT and MRI show b/l white matter changes. ? Vasulopathy Vs demyelination. ? PRES due to HTN urgency. Neurology recs requested. BP much better. Will adjust meds Pt educated extensively about med compliance and against drub abuse. am labs.Tele monitoring.
[2017-12-20] MEDS: Lisinopril 20 MG TAB PO SCH (20:04)
--- NOTE | 2017-12-21 00:01 | CON ---
DATE OF CONSULTATION: 12/20/2017 REFERRING PROVIDER: Dr. Darrick Arriola. REASON FOR CONSULTATION: Abnormal MRI brain, possible MS. HISTORY OF PRESENT ILLNESS: Ms. Mayen is a 36-year-old -[place]e female , who has been consulted for evaluation of abnormal MRI brain and possible MS. History is very limited as patient is a poor historian and falls back to sleep without providing proper history even after multiple repeated attempts. Thus most of the history is obtained from patient's dictated H&P note. Apparently, the patient has a history of polysubstance abuse. She was having twitching, eye pain and headache. EMS was called as she was having these symptoms and she was noted to have significantly elevated blood pressure with a blood pressure of 252/159. She was also tachycardic at that time. On arrival to the [facility], she was noted to be very lethargic and falling asleep during conversations. She had CT head without contrast done which showed hypodensity in the left posterior frontoparietal region for which MRI brain was done. MRI brain had shown multiple T2 white matter hyperintensities with large being in the left posterior frontoparietal region. This was concerning for MS and thus I am being asked to further evaluate this patient. Unfortunately, I was not able to get any detailed history from this patient as patient continued to fall back asleep even after repeatedly trying to wake her up, she did not provide any history that was affirmative during my evaluation. PAST MEDICAL HISTORY: Could not be obtained. I did review that from Dr. Arriola's H&P note. PAST SURGICAL HISTORY: Could not be obtained. I did review that from Dr. Arriola's H&P note. FAMILY HISTORY: Could not be obtained. I did review that from Dr. Arriola's H& P note. SOCIAL HISTORY: Could not be obtained. I did review that from Dr. Arriola's H& P note. CURRENT MEDICATIONS: Could not be obtained. I did review that from Dr. Arriola 's H&P note. ALLERGIES: Could not be obtained. I did review that from Dr. Arriola's H&P note. REVIEW OF SYSTEMS: Unable to perform. PHYSICAL EXAMINATION: VITAL SIGNS: Blood pressure of 181/94, pulse of 77, temperature of 98, respirations of 18, O2 sats of 100% on room air. GENERAL: Well-developed, well-nourished -[place]e female who is very lethargic and falls back asleep during the examination. RESPIRATORY: Clear to auscultation bilaterally. CARDIOVASCULAR: Regular rate and rhythm. NEUROLOGIC: Mental status: The patient is drowsy appearing. She is not able to stay awake for more than 5 seconds and falls back asleep. Speech and language: Difficult to evaluate as patient kept falling back asleep and only answered in yes or no questions. Cranial nerves: Pupils are 3 mm and reactive. Visual burleson are full to threat. Face appears symmetric. Motor exam showed normal tone and bulk with 5/5 strength in both upper and lower extremities. Sensory is intact to noxious stimuli. She withdraws to pain in both upper and lower extremities. Deep tendon reflexes 2+ reflexes in both upper and lower extremities. Babinski: Plantar responses flexion bilaterally. Coordination: Gait and Romberg could not be tested. LABORATORY DATA: Reviewed, which included CBC, CMP, urinalysis, urine drug screen, which is significant for hemoglobin 11.9, hematocrit of 35.4. Sodium 135, potassium 3.4 and glucose of 144. Urinalysis showed large blood with greater than 50 to too numerous to count RBC. Urine drug screen was positive for methamphetamines, cocaine and cannabinoids. IMAGING STUDIES: MRI brain with and without contrast was reviewed. Per radiology report, there are multifocal white matter signal abnormalities with a confluent signal abnormality of the left posterior parietal periventricular white matter region. They recommended this may be suggestive of demyelinating process such as multiple sclerosis. IMPRESSION: 1. Hypertensive urgency. 2. Malignant hypertension. 3. Abnormal MRI brain. Ms. Mayen is a 36-year-old -[place] female, who presented with the polysubstance abuse and malignant hypertension. She had MRI brain done, which showed multifocal white matter signal abnormalities which radiologist said concerning for demyelinating process such as MS. I have reviewed the MRI myself. Lesions noted on the MRI are primarily located in the periphery, which are not seen in multiple sclerosis. This can be seen in patients who have uncontrolled hypertension. There is confluent of white matter lesion on the left posterior parietal that could be MS related. However, it is difficult to say that this is the definitive MS. Given that she has no prior history of MS like symptoms. it would be difficult for me to make a diagnosis of MS at this time. I would recommend obtaining MRI of C-spine and T-spine with and without contrast to rule out cord lesions which would gas fitter helper in the diagnosis of MS. If the MRI of C-spine and T-spine are negative for cord lesions then lumbar puncture can be obtained to further evaluate for MS panel. She will need outpatient follow up with Neurology. Since I am relocating by the end of the December, I will have her seen by one of the [facility] provider as outpatient in 4-6 weeks post-discharge. Thank you for your consultation. DAHLIA
[2017-12-21] MEDS: Nitroglycerin 2% Ointment 1 INCH/1 GM Packet TOP SCH (05:38)
[2017-12-21] MEDS: NIFEdipine XL 30 MG TAB PO SCH (08:46)
[2017-12-21] MEDS: Hydrochlorothiazide 25 MG TAB PO SCH (08:46)
[2017-12-21] MEDS: Ferrous Sulfate 325 MG TAB PO SCH (08:46)
[2017-12-21] MEDS: Lisinopril 20 MG TAB PO SCH ×2 (08:46→21:20)
[2017-12-21] MEDS: Famotidine 20 MG TAB PO SCH ×2 (08:46→21:20)
[2017-12-21] MEDS ORDERED: NIFEdipine XL 30 MG TAB PO SCH (09:45)
[2017-12-21] MEDS: cloNIDine 0.1 MG TAB PO PRN (12:26)
--- NOTE | 2017-12-21 13:46 | EKG ---
Test Reason : Blood Pressure : / mmHG Vent. Rate : 090 BPM Atrial Rate : 090 BPM P-R Int : 174 ms QRS Dur : 102 ms QT Int : 388 ms P-R-T Axes : 054 054 088 degrees QTc Int : 474 ms Normal sinus rhythm Possible Left atrial enlargement Prolonged QT Abnormal ECG Confirmed by BHARATHI DIXON, CRICKET ([id number]), editor sound ÁLVARO GONZALEZ ([id number]) on 12/21/2017 1:45:45 PM Referred By: ADRIEL GALICIA Confirmed By:CRICKET GARVIN MD
--- NOTE | 2017-12-21 14:56 | PDOC.PN ---
- Subjective Encounter Start Date: 12/21/17 Encounter Start Time: 14:54 Subjective: no new complaints. denies any CP/SOB/paresthesias/weakness -: no bowel/bladder incontinence - Objective Resuscitation Status: Resuscitation Status FULL:Full Resuscitation MAR Reviewed: Yes Vital Signs & Weight: Vital Signs (12 hours) Temp Pulse Resp BP BP Pulse Ox 12/21/17 12:21 97.9 F 80 16 189/109 H 94 L 12/21/17 08:42 97.7 F 79 16 171/94 H 98 12/21/17 08:38 97.7 F 79 16 98 12/21/17 03:52 98.4 F 81 154/88 H 97 Weight Weight 280 lb 8 oz I&O: 12/20/17 12/21/17 12/22/17 06:59 06:59 06:59 Intake Total 730 Balance 730 Result Diagrams: 12/20/17 03:24 12/20/17 03:24 Phys Exam - Physical Examination Constitutional: NAD HEENT: PERRLA, moist MMs, sclera anicteric, oral pharynx no lesions Neck: no nodes, no JVD, supple, full ROM Respiratory: no wheezing, no rales, no rhonchi, clear to auscultation bilateral Cardiovascular: RRR, no significant murmur Gastrointestinal: soft, non-tender, no distention, positive bowel sounds Musculoskeletal: no edema, pulses present Neurological: non-focal, normal sensation, moves all 4 limbs Psychiatric: normal affect, A&O x 3 Skin: no rash Dx/Plan (1) Hypertensive urgency Code(s): I16.0 - HYPERTENSIVE URGENCY Status: Acute Comment: BP still very high. (2) Hypertensive cardiomegaly Code(s): I11.9 - HYPERTENSIVE HEART DISEASE WITHOUT HEART FAILURE Status: Chronic (3) Abnormal MRI of head Code(s): R93.0 - ABNORMAL FINDINGS ON DX IMAGING OF SKULL AND HEAD, NEC Status : Chronic Comment: Umesh PRES. R/O MS (4) Moderate mitral regurgitation Code(s): I34.0 - NONRHEUMATIC MITRAL (VALVE) INSUFFICIENCY Status: Acute (5) Severe tricuspid regurgitation Code(s): I07.1 - RHEUMATIC TRICUSPID INSUFFICIENCY Status: Acute (6) Microcytic anemia Code(s): D50.9 - IRON DEFICIENCY ANEMIA, UNSPECIFIED Status: Chronic Comment : iron deficiency anemia (7) Polysubstance abuse Code(s): F19.10 - OTHER PSYCHOACTIVE SUBSTANCE ABUSE, UNCOMPLICATED Status: Acute - Plan out of bed/ambulate, DVT proph w/SCDs DC Nitro paste. increase procardia.Lisinopril increased to BID.cont HCTZ -: Spinal MRI today to look for MS plaques. No sign /symptom of same -: Await final neurology recs. -: monitor on tele. BP not at goal -: Counselled again about gravity of situation w ongoing drug abuse & non comp * . Review of Systems - Review of Systems Constitutional: negative: fever, chills, sweats, weakness, malaise, other ENT: negative: Ear Pain, Ear Discharge, Nose Pain, Nose Discharge, Nose Congestion, Mouth Pain, Mouth Swelling, Throat Pain, Throat Swelling, Other Respiratory: negative: Cough, Dry, Shortness of Breath, Hemoptysis, SOB with Excertion, Pleuritic Pain, Sputum, Wheezing Cardiovascular: negative: chest pain, palpitations, orthopnea, paroxysmal nocturnal dyspnea, edema, light headedness, other Gastrointestinal: negative: Nausea, Vomiting, Abdominal Pain, Diarrhea, Constipation, Melena, Hematochezia, Other Genitourinary: negative: Dysuria, Frequency, Incontinence, Hematuria, Retention , Other Musculoskeletal: negative: Neck Pain, Shoulder Pain, Arm Pain, Back Pain, Hand Pain, Leg Pain, Foot Pain, Other Neurological: negative: Weakness, Numbness, Incoordination, Change in Speech, Confusion, Seizures, Other - Medications/Allergies Allergies/Adverse Reactions: Allergies Allergy/AdvReac Type Severity Reaction Status Date / Time No Known Drug Allergies Allergy Verified 09/07/17 13:53 Medications: Current Medications Acetaminophen (Tylenol) 650 mg PO Q4H PRN PRN Reason: Headache/Fever or Pain Last Admin: 12/20/17 08:42 Dose: 650 mg Hydrocodone Bitart/Acetaminophen ([place] 5/325) 1 tab PO Q4H PRN PRN Reason: Moderate Pain (4-6) Al Hydroxide/Mg Hydroxide (Maalox) 30 ml PO Q6H PRN PRN Reason: Heartburn or Indigestion Artificial Tears (Tears Naturale) 0 drop EA EYE PRN PRN PRN Reason: Dry Eyes Clonidine (Catapres) 0.1 mg PO Q4H PRN PRN Reason: Systolic BP > 180 Last Admin: 12/21/17 12:26 Dose: 0.1 mg Famotidine (Pepcid) 20 mg PO BID [facility] Last Admin: 12/21/17 08:46 Dose: 20 mg Ferrous Sulfate (Feosol) 325 mg PO QAM[facility] Last Admin: 12/21/17 08:46 Dose: 325 mg Guaifenesin (Robitussin Sf) 200 mg PO Q4H PRN PRN Reason: Cough Hydralazine HCl (Apresoline) 10 mg SLOW IVP Q4H PRN PRN Reason: Systolic BP > 180 Last Admin: 12/20/17 03:55 Dose: 10 mg Hydrochlorothiazide (Hydrochlorothiazide) 25 mg PO DAILY [facility] Last Admin: 12/21/17 08:46 Dose: 25 mg Lisinopril (Zestril) 20 mg PO BID [facility] Last Admin: 12/21/17 08:46 Dose: 20 mg Loperamide HCl (Imodium) 2 mg PO PRN PRN PRN Reason: Diarrhea/Loose Stools Loratadine (Claritin) 10 mg PO DAILYPRN PRN PRN Reason: Sinus Symptoms Lorazepam (Ativan) 1 mg PO Q4H PRN PRN Reason: Anxiety/Agitation Magnesium Hydroxide (Milk Of Magnesium) 30 ml PO DAILYPRN PRN PRN Reason: Constipation Mineral Oil/White Petrolatum (Eucerin Cream) 0 gm TOP BIDPRN PRN PRN Reason: Dry Skin Nifedipine (Procardia Xl) 60 mg PO DAILY [facility] Phenol (Chloraseptic Colony 180 Ml Bot) 0 ml PO PRN PRN PRN Reason: Sore Throat Senna (Senokot) 2 tab PO HSPRN PRN PRN Reason: Constipation Sodium Chloride ([place] Nasal [place] 0.65%) 0 ml EA NARE QIDPRN PRN PRN Reason: Nasal Congestion Sodium Chloride (Flush - Normal Saline) 10 ml IVF Q12HR [facility] Last Admin: 12/21/17 08:46 Dose: 10 ml Sodium Chloride (Flush - Normal Saline) 10 ml IVF PRN PRN PRN Reason: Saline Flush Zolpidem Tartrate (Ambien) 5 mg PO HSPRN PRN PRN Reason: Insomnia
--- NOTE | 2017-12-21 16:05 | MRI ---
MRI CERVICAL SPINE WITH AND WITHOUT CONTRAST: 12/21/17 Multiplanar and multisequential imaging cervical spine obtained with and without contrast. Postcontra st images were obtained with administration of 20 mL of Multihance. INDICATIONS: Demyelinating disease. There are no comparison studies. FINDINGS: The cervical vertebrae maintain normal height and alignment. Disc spaces are normally preserved. Ther e is no evidence of significant disc bulge or disc protrusion in the cervical levels. Minimal bulge i s seen at C5-6 mildly flattening the thecal sac. No cervical canal or foraminal stenosis. The cervical cord exhibits normal T 2 signal. There is no abnormal enhancement in the cervical cord. There is no evidence of MS plaque identified within the cervical cord. IMPRESSION: Unremarkable MRI of cervical spine. POS: [facility]
--- NOTE | 2017-12-21 16:10 | MRI ---
MRI OF THORACIC SPINE WITH AND WITHOUT CONTRAST: Multiplanar, multisequential imaging of thoracic spine obtained. INDICATION: Demyelinating disease. Postcontrast images were obtained with administration of 20 cc MultiHance. FINDINGS: The thoracic vertebrae maintain normal height and alignment. Vertebral body signal is normal. Disk spaces are normally preserved. No evidence of significant disk bulge or disk protrusion at any of th e thoracic levels. The thoracic cord exhibits normal T2 signal. There is no abnormal enhancement seen in the thoracic c ord. IMPRESSION: Unremarkable MRI of the thoracic spine. No evidence of thoracic cord abnormality. POS: [facility]
[2017-12-22] MEDS: cloNIDine 0.1 MG TAB PO PRN (00:10)
[2017-12-22 07:07] LABS: Anion Gap 11 mmol/L (10-20); BUN (Urea Nitrogen) 7 mg/dL (7.0-18.7); Calc. Creatinine Clearance 210 mL/min (70-130); Calcium 8.9 mg/dL (7.8-10.44); Carbon Dioxide 25 mmol/L (22-29); Chloride 105 mmol/L (98-107); Estimated GFR-MDRD Greater than 90; Glucose 108 mg/dL (70-105); Potassium 3.7 mmol/L (3.5-5.1); Sodium 137 mmol/L (136-145)
[2017-12-22] MEDS: Ferrous Sulfate 325 MG TAB PO SCH (08:32)
[2017-12-22] MEDS: Hydrochlorothiazide 25 MG TAB PO SCH (08:33)
[2017-12-22] MEDS: Lisinopril 20 MG TAB PO SCH (08:33)
[2017-12-22] MEDS: Famotidine 20 MG TAB PO SCH (08:33)
[2017-12-22] MEDS ORDERED: NIFEdipine XL 30 MG TAB PO SCH (09:00)
[2017-12-22 12:07] VITALS: TEMP 97.8
[2017-12-22 12:29] VITALS: BP 166/96
[2017-12-22] MEDS: Acetaminophen 325 MG TAB PO PRN (13:57)
--- NOTE | 2017-12-23 00:37 | DIS ---
DATE OF ADMISSION: 12/20/2017 DATE OF DISCHARGE: 12/22/2017 PRIMARY CARE PHYSICIAN: None. Patient has been referred to [facility]. INHOUSE CONSULTATIONS: Neurology, Dr. Flor Hopson. DISCHARGE MEDICATIONS: Procardia 60 mg daily, ferrous sulfate 325 mg in the morning, hydrochlorothia zide 25 mg daily, lisinopril 20 mg p.o. b.i.d. DISCHARGE DIAGNOSES: 1. Hypertensive urgency. 2. Abnormal MRI. 3. History of moderate mitral and severe tricuspid regurgitation. 4. Iron deficiency anemia. 5. Polysubstance abuse, ongoing. PROCEDURES DONE IN THE HOSPITAL: 1. CT scan of the brain, which does not show any acute CVA. There is some bilateral white matter di sease seen mainly in the left frontoparietal. 2. MRI of the brain which also shows multifocal white matter signal abnormalities with a confluent s ignal abnormality of the left parietal periventricular white matter concerning for demyelinating plaq ues. 3. MRI of the thoracic and cervical spine, which both are unremarkable. HOSPITAL COURSE: Ms. Mayen is a 37-year-old female with known history of hypertension, was noncompl iant with her medication, but very compliant with the drugs. She presented to the emergency room wit h complaints of altered mental status. Her blood pressure was found to be over 250 systolic and 159 diastolic. She had complaints of twitching, eye pain, and headache. She was found to be tachycardic as well. A CT scan of the brain was done, which showed possible white matter changes. Initially, s he was treated with Cardene drip in the emergency room, which was later tapered off and she was admit stanton to telemetry unit for further monitoring. Please see admission history and physical for further detail. The patient was restarted on her home medications including Procardia and Prinzide as well a s nitropatch. Please see admission history and physical for further details. HOSPITAL COURSE: The patient did test positive for cocaine, methamphetamine, and marijuana. Her blo od pressure was initially difficult to control, but with adjustment of medication, she had a better c ontrol of the blood pressure. With regards to possible white matter changes and a CT scan of the brain, MRI of the brain was done, which once again showed a similar finding. So Neurology was consulted. Dr. Hopson saw the patient and the patient has not been having any signs, symptoms, motor, sensory or optic to suggest multiple scl erosis; however, she underwent an MRI of the spine of the thoracic and cervical region. Both of them were unremarkable. The patient, this morning is back to her baseline and has no neurological signs and symptoms and bloo d pressure is under better control, so she will be discharged. Extensive counseling was provided abo ut compliance with the medication and not doing the drugs. I also discussed this with the father of the patient's permission. She is also made aware of the abnormal MRI and the need to follow up with Neurology in the outpatient setting. She needs to follow up with primary care physician and the refe rrals were made for both PCP and Neurology. This morning, she was seen and examined prior to discharge and has no new complaints and feels very w ell. PHYSICAL EXAMINATION: This morning: VITAL SIGNS: Temperature 97.8, heart rate 79, respirations 15, saturating 97% on room air, blood pre ssure 166/96. GENERAL: No acute distress, awake, alert, oriented x3. CHEST: Clear to auscultation bilaterally. Rate and rhythm is regular. LABORATORY EXAMINATION: Serum test was negative. BUN and creatinine within normal limit. Hemoglobin 11.9. PT, PTT, INR within normal limit. Total time spent on the discharge, 32 minutes.
== END 2017-12-22 14:56 | disposition home or self-care (01) | DRG 305 ==
LOC: ERS 22:42 → 2NO 12-20 03:23
PROVIDERS: ADMIT Internal Medicine; ATTEND Internal Medicine
DX: I16.0 Hypertensive urgency (principal); Z68.41 Body mass index [BMI] 40.0-44.9, adult; F14.10 Cocaine abuse, uncomplicated; F12.10 Cannabis abuse, uncomplicated; F11.10 Opioid abuse, uncomplicated; D50.9 Iron deficiency anemia, unspecified; E66.01 Morbid (severe) obesity due to excess calories; Z91.14 Patient's other noncompliance with medication regimen; R31.29 Other microscopic hematuria; I11.9 Hypertensive heart disease without heart failure; I08.1 Rheumatic disorders of both mitral and tricuspid valves
CPT/HCPCS: 36415; 70450; 70553; 72156; 72157; 80048; 80053; 80306; 80307; 81003; 81015; 84703; 85025; 85610; 85730; 93005; 96365; 96375; A4216; J0360

== ENCOUNTER 2018-01-10 14:14 | Inpatient (IN) | payer SELFPAY ==
[2018-01-10 14:55] LABS: #Basophils 0.1 thou/uL (0.0-0.2); #Eosinphils 0.2 thou/uL (0.0-0.7); #Monocytes 0.2 thou/uL (0.11-0.59); #Neutrophils 2.4 thou/uL (1.40-6.50); %Basophils 1.3 % (0.0-1.0); %Lymphocytes 41.4 % (21.0-51.0); %Monocytes 4.8 % (0.0-10.0); %Neutrophils 48.4 % (42.0-75.0); Hemoglobin 11.8 g/dL (12.0-16.0); Mean Corpuscular HGB CONC 32.4 g/dL (32.0-36.0); Mean Corpuscular Hemoglobin 26.1 pg (27.0-31.0); Mean Corpuscular Volume 80.4 fL (78.0-98.0); Mean Platelet Volume 9.3 fL (7.4-10.4); Platelet Count 242 thou/uL (130-400); Red Blood Cell (RBC) Count 4.53 mill/uL (4.20-5.40); White Blood Cell (WBC) Count 4.9 thou/uL (4.8-10.8)
[2018-01-10 15:09] LABS: ALT (SGPT) 10 U/L (8-55); AST (SGOT) 16 U/L (5-34); Albumin 3.7 g/dL (3.5-5.0); Alkaline Phosphatase 64 U/L (40-150); Anion Gap 13 mmol/L (10-20); BUN (Urea Nitrogen) 8 mg/dL (7.0-18.7); Bilirubin, Total 0.3 mg/dL (0.2-1.2); CK (CPK) 108 U/L (29-168); Calc. Creatinine Clearance 0 mL/min (70-130); Calcium 8.1 mg/dL (7.8-10.44); Carbon Dioxide 22 mmol/L (22-29); Chloride 107 mmol/L (98-107); Estimated GFR-MDRD Greater than 90; Globulin 3.3 g/dL (2.4-3.5); Glucose 78 mg/dL (70-105); Sodium 138 mmol/L (136-145)
[2018-01-10 15:12] LABS: CKMB 1.6 ng/mL (0-6.6); Troponin I Less than 0.010 ng/mL (< 0.028)
[2018-01-10] MEDS ORDERED: Ondansetron HCl/PF 4 MG/2 ML Vial ONE (15:39)
[2018-01-10] MEDS ORDERED: hydrALAZINE 20 MG/ML VIAL ONE (15:39)
--- NOTE | 2018-01-10 16:00 | RAD ---
1 VIEW CHEST: Date: 01/10/18 COMPARISON: 09/06/17. HISTORY: Chest pain. FINDINGS: Slight elongation of aorta. Normal cardiac silhouette. Pulmonary vessels and hilum are normal. No con solidation or mass. No pneumothorax or osseous abnormalities. IMPRESSION: No acute cardiopulmonary process. POS: [facility]
[2018-01-10] MEDS ORDERED: Nitroglycerin 2% Ointment 1 INCH/1 GM Packet ONE (16:36)
[2018-01-10] MEDS ORDERED: Labetalol HCl 100 MG/20 ML VIAL ONE (16:38)
[2018-01-10] MEDS ORDERED: niCARdipine 20MG In NaCl 20 MG/200 ML BAG ONE (17:41)
[2018-01-10] MEDS ORDERED: Acetaminophen 500 MG TAB ONE (18:44)
[2018-01-10 19:52] LABS: Troponin I Less than 0.010 ng/mL (< 0.028)
[2018-01-10] MEDS ORDERED: niCARdipine HCl 25 MG in Sodium Chloride 0.9% 250 ML 240 ML IVPB SCH (20:45)
[2018-01-10 20:50] VITALS: BMI 40.1
[2018-01-10 21:12] LABS: Bilirubin Negative (Negative); Blood, Urine Negative (Negative); Clarity CLEAR (Clear); Glucose, Urine (Dipstick) Negative (Negative); Leukocyte Negative (Negative); Nitrite Negative (Negative); Protein, Urine (Dipstick) Negative (Neg-Trace); Specific Gravity, Urine 1.008 (1.002-1.036); pH, Urine 7.5 (5.0-9.0)
[2018-01-10 21:15] LABS: Bacteria/HPF Rare-Few HPF (None Seen); Hyaline Casts/LPF 0-3 HYALINE CAST LPF (0-3 Hyaline); RBC/HPF None Seen HPF (0-3); Squamous Epithelial 0-3 HPF (0-3); WBC/HPF 0-3 HPF (0-3)
[2018-01-10] MEDS ORDERED: Nitroglycerin 50 MG/250 ML BOT 250 ML IVPB SCH (21:30)
[2018-01-10] MEDS ORDERED: Ondansetron HCl/PF 4 MG/2 ML Vial IVP PRN (21:35)
[2018-01-10] MEDS ORDERED: Ondansetron ODT 4 MG TAB PO PRN (21:35)
[2018-01-10] MEDS ORDERED: Acetaminophen 325 MG TAB PO PRN (21:35)
[2018-01-10] MEDS ORDERED: Acetaminophen 650 MG Suppository PR PRN (21:35)
[2018-01-10 22:01] LABS: Amphetamine Not Detected (NotDetected); Barbiturates Screen Not Detected (NotDetected); Benzodiazepine Screen Not Detected (NotDetected); Cocaine Metabolite Screen Detected (NotDetected); Medtox Control Line Valid? VALID (VALID); Medtox Reader # READER 1; Methadone Not Detected (NotDetected); Methamphetamine Not Detected (NotDetected); Opiate Screen Not Detected (NotDetected); Oxycodone Screen Not Detected (NotDetected); Phencyclidine (PCP) Not Detected (NotDetected); THC/Cannabinoid Screen Detected (NotDetected); Tricyclic Screen Not Detected (NotDetected)
[2018-01-10 22:14] LABS: Troponin I Less than 0.010 ng/mL (< 0.028)
[2018-01-10] MEDS: Nicotine 21 MG PATCH TD SCH (23:00)
[2018-01-10] MEDS ORDERED: Nitroglycerin 2% Ointment 1 INCH/1 GM Packet TOP SCH (23:59)
[2018-01-11 05:32] LABS: Anion Gap 12 mmol/L (10-20); BUN (Urea Nitrogen) 12 mg/dL (7.0-18.7); Calc. Creatinine Clearance 183 mL/min (70-130); Calcium 8.5 mg/dL (7.8-10.44); Carbon Dioxide 23 mmol/L (22-29); Chloride 107 mmol/L (98-107); Estimated GFR-MDRD Greater than 90; Glucose 113 mg/dL (70-105); Potassium 3.5 mmol/L (3.5-5.1); Sodium 138 mmol/L (136-145)
--- NOTE | 2018-01-11 06:47 | HP ---
CHIEF COMPLAINT: Chest pain. HISTORY OF PRESENT ILLNESS: This is a 37-year-old female with past medical history of hypertension, presenting with chest pain which started this morning. The patient's chest pain started this morning and it was localized at the substernal region that was nonradiating and it was squeezing pressure-li ke in nature. Patient stated that she took her blood pressure medications and she went to work; [employer], at work, the chest pain became worse again and the pain scale of about 7 or 6/10. It was not se roseanna pain; however, it was very uncomfortable. Therefore, patient states that she waited until her s hift was over, she went home and her friend called the ambulance because the pain was unbearable at t hat point. The patient also states that this chest pain has been ongoing for the past 2 months and s he was seen in the hospital and during that time, an echo was done and the patient was told that she has enlarged heart. REVIEW OF SYSTEMS: Positive for shortness of breath, vomiting, chest pain, otherwise as documented i n the HPI, all other systems were reviewed and are negative. PAST MEDICAL HISTORY: Uncontrolled hypertension, enlarged heart. PAST SURGICAL HISTORY: No surgical history. PSYCHIATRIC HISTORY: Depression. SOCIAL HISTORY: Patient drinks occasionally. Patient smokes 5 cigarettes per day. Patient states t hat she smokes marijuana. The patient used some cocaine few months back, but states that she has sto pped doing cocaine. FAMILY HISTORY: Per patient, both her father and mother has history of blood pressure and heart prob lems. KNOWN ALLERGIES: No known drug allergies. CURRENT MEDICATIONS: 1. Hydrochlorothiazide 25 mg. 2. Hydralazine 25 mg. 3. Lisinopril 20 mg. 4. Feosol 325 mg. PHYSICAL EXAMINATION: VITAL SIGNS: In the ED, the patient's blood pressure was 179/113, went up as high as 221/138, pulse 80, respiratory rate of 20, temperature 97.9. GENERAL: The patient was lying in bed, does not appear to be in any acute distress, speaking in full sentences. EYES: The patient has conjunctival hemorrhage. Mucous membranes are moist. NECK: Supple. No JVDs. Trachea is midline. RESPIRATORY: Clear to auscultation bilaterally. No wheezing, no rales, no rhonchi is appreciated. CARDIOVASCULAR: Positive S1, S2. Regular rate and rhythm. No murmurs, no gallops, no rubs apprecia stanton. ABDOMEN: Soft, nontender, nondistended. Positive bowel sounds in all quadrants. No pulsatile daniel s. No peritoneal signs. EXTREMITIES: Upper extremity: The patient has good upper extremity movement, full range of motion. Lower extremity: Patient has good pulses bilaterally and good lower extremity movement. No edema. NEUROLOGIC: Cranial nerves II through XII grossly intact. No neurologic deficits noted. SKIN: Warm, dry, and intact. PSYCHIATRIC: Alert and oriented x3, normal affect. EKG: Left ventricular hypertrophy noted, sinus. ED COURSE: In the ED, the patient was given labetalol 10 mg, Tylenol 1 gram, Cardene 5 mg per hour, nitro transdermal patch, labetalol another 10 mg was also given, hydralazine injection 10 mg, Zofran IV and patient was sent to the ICU. IMAGING: Chest x-ray that was ordered, showed no acute cardiopulmonary process. LABORATORY DATA: WBC 4.9, hemoglobin 11.8, hematocrit is 36.4, platelet count is 242,000. Sodium 13 8, potassium 4.0, chloride 107, carbon dioxide 22, anion gap is 13, BUN is 8, creatinine is 0.79, glu cose is 78. BNP is 145.9. Troponin is less than 0.010 x3. Creatine kinase 108, CK-MB is 1.6. UA i s negative for leukoesterase and nitrites. Cocaine is positive and cannabinoids are positive in the urine tox. ASSESSMENT AND PLAN: This is a 37-year-old female being admitted for hypertensive emergency. Patien t had vomitus, also had chest pain and shortness of breath. At this point, the patient has been star stanton on nitro drip to be titrated to allow for permissive hypertension of 180 systolic and then we kati l continue to titrate patient to bring patient's blood pressure to 160s in 24 hours. We will continu e to monitor the patient's blood pressure closely and then we will leave it up to the day team for th em to adjust patient's blood pressure medications. It will be important for the day team to monitor the patient's blood pressure very closely. The patient will benefit from also being worked up for ot her source of hypertension. We will get renal ultrasound bilaterally and will get renin-aldosterone ratio and we will also get urine metanephrines to rule out pheochromocytoma. 1. Uncontrolled blood pressure. We will adjust the patient's blood pressure medications. 2. Deep venous thrombosis and gastrointestinal prophylaxis. We will do devices sequential compressi on devices.
[2018-01-11] MEDS: hydrALAZINE 25 MG TAB PO SCH ×3 (08:16→20:07)
[2018-01-11] MEDS: Famotidine 20 MG TAB PO SCH ×2 (08:16→20:07)
[2018-01-11] MEDS: Hydrochlorothiazide 25 MG TAB PO SCH (08:16)
[2018-01-11] MEDS: Lisinopril 20 MG TAB PO SCH ×2 (08:16→20:08)
[2018-01-11] MEDS: Ferrous Sulfate 325 MG TAB PO SCH (08:17)
[2018-01-11] MEDS ORDERED: Famotidine/PF 20 mg/2ml Vial SLOW IVP SCH (09:00)
--- NOTE | 2018-01-11 11:31 | CON ---
DATE OF CONSULTATION: 01/11/2018 REASON FOR CONSULTATION: Hypertensive emergency. HISTORY OF PRESENT ILLNESS: The patient is a 37-year-old -[place] female who came in to the hospital last night with substernal chest pain. She was found to be severely hypertensive with blood pressure as high as 221/138. She initially placed on a Cardene drip that was later switched to a ni troglycerin drip. This morning, both the drips are off and she is now receiving oral antihypertensiv e medication. The patient has been in the hospital several times before under similar circumstances. She abuses co cassia. I get the impression that she only gets her high blood pressure medications when she is hospi talized and does not have any when she runs out at home as she does not see a doctor as an outpatient . PAST MEDICAL HISTORY: 1. Hypertension. 2. Left ventricular hypertrophy by echo done in September. PAST SURGICAL HISTORY: None. SOCIAL HISTORY: The patient smokes tobacco, marijuana and snorts cocaine. She says use of cocaine i s intermittent. She is an employee at [employer]. She has 3 kids between ages 12 and 19. She has a spouse at home. HOME MEDICATIONS PRIOR TO ADMISSION: Hydrochlorothiazide, hydralazine, lisinopril, iron sulfate. REVIEW OF SYSTEMS: Currently, not having chest pain, palpitations, headache. PHYSICAL EXAMINATION: VITAL SIGNS: Temperature 97.7, pulse 67, blood pressure 188/118. Total intake 872, output 1175. HEENT: She has a subconjunctival hemorrhage, left eye laterally. Sclerae otherwise anicteric. Orop harynx good dentition. NECK: No JVD, no bruits. LUNGS: Clear without wheeze or rhonchi. CARDIAC: S1, S2 regular with audible murmur. ABDOMEN: Soft, obese, nontender, nondistended. EXTREMITIES: No clubbing, cyanosis, or edema. IMAGING: Chest x-ray shows cardiomegaly, no evidence of pulmonary edema. LABORATORY DATA: BNP level is 149. Sodium 138, potassium 3.5, chloride 107, CO2 of 23, BUN 12, crea tinine 0.8, glucose 113. White blood cell count 4.9, hematocrit 36.4, platelet count 242. Toxicolog y screen positive for cocaine and cannabinoids. EKG shows voltage criteria for left ventricular hype rtrophy. ASSESSMENT: 1. Hypertension, out of control. 2. Substance abuse. PLAN: The patient has been started on oral medications. As long as her blood pressure can stay unde r controlled in those medications, then she can move out to the floor today. She has been advised no t to use cocaine or smoke. I doubt that she will comply. I doubt aldosterone and metanephrines will add anything to the workup. If she were able to obtain insurance and medical care a sleep study deandre ht be indicated as untreated sleep apnea could aggravate underlying hypertension. However, I think h er priority should be getting off the cocaine.
--- NOTE | 2018-01-11 15:48 | PDOC.PN ---
- Subjective Encounter Start Date: 01/11/18 Encounter Start Time: 15:15 Subjective: f/u for HTN urgency on previous Cardene and Nitro gtt. BP remains labile -: Feels better overall. No unilateral weakness, visual changes. - Objective Resuscitation Status: Resuscitation Status FULL:Full Resuscitation MAR Reviewed: Yes Vital Signs & Weight: Vital Signs (12 hours) Temp Pulse BP Pulse Ox 01/11/18 15:10 76 182/121 H 01/11/18 12:00 98.7 F 01/11/18 08:16 73 188/118 H 01/11/18 08:00 97.7 F 01/11/18 07:50 100 01/11/18 04:00 98.2 F Weight Weight 279 lb 15.793 oz Most Recent Monitor Data Heart Rate from ECG 75 NIBP 182/121 NIBP BP-Mean 141 Respiration from ECG 21 SpO2 100 I&O: 01/10/18 01/11/18 01/12/18 06:59 06:59 06:59 Intake Total 872.4 1160 Output Total 1175 1075 Balance -302.6 85 Result Diagrams: 01/10/18 14:41 01/11/18 04:40 Additional Labs: Laboratory Tests 01/10/18 01/10/18 14:40 21:00 B-Natriuretic Peptide 145.9 H U Cocaine Metab Screen Detected H U Cannabinoids Screen Detected H Radiology Reviewed by me: Yes (Renal sono - neg) EKG Reviewed by me: Yes (Tele - SR) Phys Exam - Physical Examination Constitutional: NAD HEENT: PERRLA, sclera anicteric, oral pharynx no lesions Neck: no nodes, no JVD, supple, full ROM Respiratory: no wheezing, no rales, no rhonchi, clear to auscultation bilateral S1, S2 Cardiovascular: RRR, no significant murmur, no rub, gallop Gastrointestinal: soft, non-tender, no distention, positive bowel sounds Musculoskeletal: no edema, pulses present Neurological: non-focal, normal sensation, moves all 4 limbs Psychiatric: normal affect, A&O x 3 Skin: no rash, normal turgor, cap refill <2 seconds Dx/Plan (1) Hypertensive urgency Code(s): I16.0 - HYPERTENSIVE URGENCY Status: Acute Comment: Labile BP, increase Hydralazine 50mg TID, continue Lisinopril 20mg BID, start Metoprolol 25mg BID, Hydralazine/Clonidine PRN (2) Polysubstance abuse Code(s): F19.10 - OTHER PSYCHOACTIVE SUBSTANCE ABUSE, UNCOMPLICATED Status: Acute Comment: Cessation resources prior to d/c (3) Severe tricuspid regurgitation Code(s): I07.1 - RHEUMATIC TRICUSPID INSUFFICIENCY Status: Chronic Comment: Noted on 2D echo in 09/09, secondary to uncontrolled HTN (4) Noncompliance Code(s): Z91.19 - PATIENT'S NONCOMPLIANCE W OTH MEDICAL TREATMENT AND REGIMEN Status: Chronic Comment: Education and support for substance abuse abstinence - Plan director of social services, DVT proph w/SCDs Continue to monitor BP response -: Increase Hydralazine 50mg TID -: Add Metoprolol 25mg BID -: PRN Hydralazine/Clonidine -: Likely home in 24h * .
[2018-01-11] MEDS ORDERED: cloNIDine 0.1 MG TAB PO PRN (15:49)
[2018-01-11] MEDS ORDERED: hydrALAZINE 20 MG/ML VIAL SLOW IVP PRN (15:49)
--- NOTE | 2018-01-11 15:58 | ULT ---
RENAL ULTRASOUND WITH RENAL DOPPLER 01/11/18 HISTORY: Hypertension. Evaluate for renal artery stenosis. COMPARISON: None. TECHNIQUE: Khan scale, color flow, doppler imaging with spectral waveform analysis is performed in the kidneys. FINDINGS: RIGHT KIDNEY: No hydronephrosis. Right kidney measures 10.5 x 5.5 x 5.7 cm. Normal cortical echotexture. LEFT KIDNEY: No hydronephrosis. Left kidney measures 10.8 x 6.8 x 6.4 cm. No obvious cortical masses. Evaluation i s limited by shadowing. RENAL DOPPLER: Right renal artery 100.3 cm/s. Left renal artery 77.2 cm/s. Aorta 74.2 cm/s. Right renal artery gradient ratio of 1.4. Left renal artery gradient ratio of 1.0. Right renal arcuate artery resistive index is 0.61, 0.63, 0.71. Left renal arcuate artery resistive index is 0.66, 0.72, 0.73. IMPRESSION: 1. Upper normal arcuate artery resistive indices when taking an average. Correlate clinically fo r medial renal disease. 2. No sonographic evidence of significant renal artery stenosis. however, evaluation is limited by body habitus. Dedicated CT angiogram is recommended. POS: WILDER
[2018-01-11] MEDS: Metoprolol Tartrate 25 MG TAB PO SCH (20:08)
[2018-01-11] MEDS: Nicotine 21 MG PATCH TD SCH (20:08)
[2018-01-12] MEDS: Famotidine 20 MG TAB PO SCH ×2 (09:43→20:27)
[2018-01-12] MEDS: Ferrous Sulfate 325 MG TAB PO SCH (09:44)
[2018-01-12] MEDS: Metoprolol Tartrate 25 MG TAB PO SCH (09:44)
[2018-01-12] MEDS: hydrALAZINE 25 MG TAB PO SCH ×3 (09:45→20:26)
[2018-01-12] MEDS: Lisinopril 20 MG TAB PO SCH ×2 (09:45→20:27)
[2018-01-12] MEDS: Hydrochlorothiazide 25 MG TAB PO SCH (09:45)
--- NOTE | 2018-01-12 11:23 | PDOC.PN ---
- Subjective Encounter Start Date: 01/12/18 Encounter Start Time: 11:10 Subjective: f/u for HTN urgerncy with labile HTN. Overall feels ok except for mild -: abd pain. Ate all meals and states she is still hungry. - Objective Resuscitation Status: Resuscitation Status FULL:Full Resuscitation MAR Reviewed: Yes Vital Signs & Weight: Vital Signs (12 hours) Temp Pulse Resp BP BP BP BP 01/12/18 09:45 71 184/119 H 01/12/18 07:43 97.4 F L 71 18 184/119 H 01/12/18 04:00 97.7 F 63 14 138/86 01/12/18 01:26 71 128/71 01/11/18 23:35 Pulse Ox 01/12/18 09:45 01/12/18 07:43 98 01/12/18 04:00 94 L 01/12/18 01:26 01/11/18 23:35 97 Weight Weight 279 lb 14 oz Most Recent Monitor Data Heart Rate from ECG 62 NIBP 162/100 NIBP BP-Mean 120 Respiration from ECG 19 SpO2 97 I&O: 01/11/18 01/12/18 01/13/18 06:59 06:59 06:59 Intake Total 872.4 4760 Output Total 1175 1950 Balance -302.6 2810 Result Diagrams: 01/10/18 14:41 01/11/18 04:40 Radiology Reviewed by me: Yes (Renal sono - no stenosis) EKG Reviewed by me: Yes (Tele - SR) Phys Exam - Physical Examination Constitutional: NAD HEENT: PERRLA, sclera anicteric, oral pharynx no lesions Neck: no nodes, no JVD, supple, full ROM Respiratory: no wheezing, no rales, no rhonchi, clear to auscultation bilateral S1, S2 Cardiovascular: RRR, no significant murmur, no rub, gallop Gastrointestinal: soft, non-tender, no distention, positive bowel sounds Musculoskeletal: no edema, pulses present Neurological: non-focal, normal sensation, moves all 4 limbs Psychiatric: normal affect, A&O x 3 Skin: no rash, normal turgor, cap refill <2 seconds Dx/Plan (1) Hypertensive urgency Code(s): I16.0 - HYPERTENSIVE URGENCY Status: Acute Comment: Labile BP, increase Hydralazine 50mg TID, continue Lisinopril 20mg BID, increase Metoprolol 50mg BID, Hydralazine/Clonidine PRN (2) Polysubstance abuse Code(s): F19.10 - OTHER PSYCHOACTIVE SUBSTANCE ABUSE, UNCOMPLICATED Status: Acute Comment: Cessation resources prior to d/c (3) Severe tricuspid regurgitation Code(s): I07.1 - RHEUMATIC TRICUSPID INSUFFICIENCY Status: Chronic Comment: Noted on 2D echo in 09/09, secondary to uncontrolled HTN (4) Noncompliance Code(s): Z91.19 - PATIENT'S NONCOMPLIANCE W OTH MEDICAL TREATMENT AND REGIMEN Status: Chronic Comment: Education and support for substance abuse abstinence - Plan out of bed/ambulate Stable overall -: Increase Metoprolol 50mg BID -: Continue to trend BP -: Smoking cessation resources -: Likely home in 24h * .
[2018-01-12] MEDS: Metoprolol Tartrate 50 MG TAB PO SCH (20:26)
[2018-01-12] MEDS: Nicotine 21 MG PATCH TD SCH (20:30)
[2018-01-13 08:16] VITALS: TEMP 98
[2018-01-13] MEDS: Ferrous Sulfate 325 MG TAB PO SCH (09:08)
[2018-01-13] MEDS: hydrALAZINE 25 MG TAB PO SCH (09:09)
[2018-01-13] MEDS: Metoprolol Tartrate 50 MG TAB PO SCH (09:09)
[2018-01-13] MEDS: Famotidine 20 MG TAB PO SCH (09:09)
[2018-01-13] MEDS: Hydrochlorothiazide 25 MG TAB PO SCH (09:10)
[2018-01-13] MEDS: Lisinopril 20 MG TAB PO SCH (09:10)
[2018-01-13 12:01] VITALS: BP 174/90
--- NOTE | 2018-01-13 13:07 | DIS ---
DATE OF ADMISSION: 01/10/2018 DATE OF DISCHARGE: 01/13/2018 DISCHARGE DIAGNOSES: 1. Hypertensive urgency, resolved. 2. Hypertension, labile. 3. Polysubstance abuse. 4. Severe tricuspid regurgitation. 5. Medical noncompliance. CONSULTATIONS: Dr. Carpenter with Pulmonology Service. PERTINENT LABORATORY AND X-RAY FINDINGS: Complete metabolic profile within normal limits. BNP 146, troponin I negative x3. CBC showed a hemoglobin of 12. Urinalysis negative. Urine drug screen date d 01/10/2018 positive for cocaine and cannabinoids. Portable chest x-ray dated 01/10/2018 showed no acute cardiopulmonary process. Bilateral renal ultra sounds dated 01/11/2018 showed no sonographic evidence of significant renal artery stenosis. HOSPITAL COURSE: The patient was initially admitted to the Critical Care Unit after presenting with chest pain with associated hypertensive urgency. The patient was initially placed on a nitroglycerin infusion as well as Cardene for blood pressure control. The patient was difficult to control in reg ards to blood pressure trend with adjustment to her chronic regimen throughout the hospital course. The patient was noted positive for cannabinoids and cocaine at the time of admission, likely contribu ting to patient's labile hypertension. The patient was titrated on her hydralazine and metoprolol wi more optimal blood pressure response. The patient transferred out of the Critical Care Unit to [facility] telemetry unit and remained clinically stable with cardiac monitoring. Telemetry monitoring showed a sinus mechanism with heart rates in the 60s-70s. I have examined the patient at the time of discharge and discussed followup instructions, at which po int the patient verbalized understanding and agreement. The patient overall clinically stable and re malou for discharge on 01/13/2018. DISCHARGE MEDICATIONS: 1. Ferrous sulfate 325 mg 1 tab p.o. daily. 2. Hydralazine 50 mg p.o. t.i.d. 3. Hydrochlorothiazide 25 mg p.o. daily. 4. Lisinopril 20 mg p.o. b.i.d. 5. Metoprolol tartrate 50 mg p.o. b.i.d. FOLLOWUP: The patient may follow up with [facility] in [place], [place] within 7 days of discharge. CONDITION ON DISCHARGE: Fair. ACTIVITY: Ad juliana. DIET: Heart healthy. CODE STATUS: Full. DISPOSITION: Home 01/13/2018.
--- NOTE | 2018-01-14 12:25 | EKG ---
Test Reason : Blood Pressure : / mmHG Vent. Rate : 079 BPM Atrial Rate : 079 BPM P-R Int : 160 ms QRS Dur : 104 ms QT Int : 428 ms P-R-T Axes : 007 038 085 degrees QTc Int : 490 ms Normal sinus rhythm Prolonged QT Abnormal ECG Confirmed by CARROL LEMUS ([id number]), field map editor ANKUR SERRANO ([id number]) on 01/14/2018 12:24:44 PM Referred By: Confirmed By:CARROL LEMUS
--- NOTE | 2018-01-15 17:08 | EKG ---
Test Reason : Blood Pressure : / mmHG Vent. Rate : 069 BPM Atrial Rate : 069 BPM P-R Int : 160 ms QRS Dur : 106 ms QT Int : 454 ms P-R-T Axes : 018 049 072 degrees QTc Int : 486 ms Normal sinus rhythm Prolonged QT Abnormal ECG When compared with ECG of 10-JAN-2018 14:23, (Unconfirmed) No significant change was found Confirmed by MASON DARNELL ([id number]) on 01/15/2018 5:08:16 PM Referred By: LISBETH Confirmed By:MASON DARNELL
--- NOTE | 2018-01-17 13:25 | ULT ---
RENAL ULTRASOUND WITH RENAL DOPPLER 01/11/18 HISTORY: Hypertension. Evaluate for renal artery stenosis. COMPARISON: None. TECHNIQUE: Khan scale, color flow, doppler imaging with spectral waveform analysis is performed in the kidneys. FINDINGS: RIGHT KIDNEY: No hydronephrosis. Right kidney measures 10.5 x 5.5 x 5.7 cm. Normal cortical echotexture. LEFT KIDNEY: No hydronephrosis. Left kidney measures 10.8 x 6.8 x 6.4 cm. No obvious cortical masses. Evaluation i s limited by shadowing. RENAL DOPPLER: Right renal artery 100.3 cm/s. Left renal artery 77.2 cm/s. Aorta 74.2 cm/s. Right renal artery gradient ratio of 1.4. Left renal artery gradient ratio of 1.0. Right renal arcuate artery resistive index is 0.61, 0.63, 0.71. Left renal arcuate artery resistive index is 0.66, 0.72, 0.73. IMPRESSION: 1. Upper normal arcuate artery resistive indices when taking an average. Correlate clinically fo r medial renal disease. 2.No sonographic evidence of significant renal artery stenosis. however, evaluation is limited by bod y habitus. Dedicated CT angiogram is recommended.
== END 2018-01-13 13:15 | disposition home or self-care (01) | DRG 305 ==
LOC: ERS 14:14 → CCU 16:32 → 2NO 01-11 23:32
PROVIDERS: ADMIT Internal Medicine; ATTEND Internal Medicine
DX: I16.0 Hypertensive urgency (principal); I07.1 Rheumatic tricuspid insufficiency; F12.10 Cannabis abuse, uncomplicated; F14.10 Cocaine abuse, uncomplicated; Z91.19 Patient's noncompliance with other medical treatment and regimen
CPT/HCPCS: 36415; 71045; 76700; 76770; 80048; 80053; 80306; 81001; 82088; 82553; 83880; 84244; 84484; 85025; 93005; 93010; 96365; 96366; 96375; J0360; J2405; J7050

== ENCOUNTER 2018-05-22 21:09 | Inpatient (IN) | payer SELFPAY ==
[2018-05-22 21:39] LABS: Mean Corpuscular HGB CONC 31.2 g/dL (32.0-36.0); Mean Corpuscular Hemoglobin 25.3 pg (27.0-31.0); Mean Platelet Volume 10.3 fL (7.4-10.4); Platelet Count 189 thou/uL (130-400); RBC Distribution Width 13.3 % (11.5-14.5); Red Blood Cell (RBC) Count 4.75 mill/uL (4.20-5.40); White Blood Cell (WBC) Count 4.6 thou/uL (4.8-10.8)
[2018-05-22 21:40] LABS: #Basophils 0.1 thou/uL (0.0-0.2); #Eosinphils 0.1 thou/uL (0.0-0.7); #Lymphocytes 1.6 thou/uL (1.20-3.40); #Monocytes 0.3 thou/uL (0.11-0.59); #Neutrophils 2.5 thou/uL (1.40-6.50); %Basophils 1.4 % (0.0-1.0); %Eosinophils 2.8 % (0.0-10.0); %Lymphocytes 35.7 % (21.0-51.0); %Monocytes 6.8 % (0.0-10.0); %Neutrophils 53.3 % (42.0-75.0)
--- NOTE | 2018-05-22 21:46 | RAD ---
FRONTAL VIEW CHEST: INDICATIONS: Emergency exam. Chest pain. COMPARISON: 01/10/2018 FINDINGS: The cardiac silhouette is prominent, stable. No consolidation, effusion, or discrete pneumothorax. IMPRESSION: No lobar consolidation. There is prominence of the cardiac silhouette. Correlate clinically. POS: SEAN
[2018-05-22 21:58] LABS: ALT (SGPT) Less than 7 U/L (8-55); AST (SGOT) 12 U/L (5-34); Albumin 3.8 g/dL (3.5-5.0); Alkaline Phosphatase 67 U/L (40-150); Anion Gap 10 mmol/L (10-20); BUN (Urea Nitrogen) 14 mg/dL (7.0-18.7); Bilirubin, Total 0.3 mg/dL (0.2-1.2); Calc. Creatinine Clearance 0 mL/min (70-130); Calcium 9.1 mg/dL (7.8-10.44); Carbon Dioxide 26 mmol/L (22-29); Chloride 108 mmol/L (98-107); Estimated GFR-MDRD Greater than 90; Globulin 3.1 g/dL (2.4-3.5); Glucose 84 mg/dL (70-105); Protein, Total 6.9 g/dL (6.0-8.3); Sodium 140 mmol/L (136-145)
[2018-05-22] MEDS ORDERED: Acetaminophen 500 MG TAB ONE (23:31)
[2018-05-22] MEDS ORDERED: hydrALAZINE 20 MG/ML VIAL ONE (23:31)
[2018-05-23 00:18] LABS: Bilirubin Negative (Negative); Blood, Urine Negative (Negative); Clarity CLOUDY (Clear); Glucose, Urine (Dipstick) Negative (Negative); Leukocyte Large (Negative); Nitrite Negative (Negative); Protein, Urine (Dipstick) Negative (Neg-Trace); Specific Gravity, Urine 1.025 (1.002-1.036); Urobilinogen 0.2 mg/dL (0.2-1.0)
[2018-05-23 00:21] LABS: Bacteria/HPF Rare-Few HPF (None Seen); Hyaline Casts/LPF 7-10 HYALINE CAST LPF (0-3 Hyaline); Pathc Cast-AUWi Flag 0.87 (0-2.49); WBC/HPF 21-50 HPF (0-3)
[2018-05-23 00:28] LABS: Amphetamine Not Detected (NotDetected); Barbiturates Screen Not Detected (NotDetected); Benzodiazepine Screen Not Detected (NotDetected); Cocaine Metabolite Screen Detected (NotDetected); Medtox Control Line Valid? VALID (VALID); Medtox Reader # READER 4; Methadone Not Detected (NotDetected); Methamphetamine Not Detected (NotDetected); Opiate Screen Not Detected (NotDetected); Oxycodone Screen Not Detected (NotDetected); Phencyclidine (PCP) Not Detected (NotDetected); THC/Cannabinoid Screen Detected (NotDetected); Tricyclic Screen Not Detected (NotDetected)
[2018-05-23 00:31] LABS: RBC/HPF None Seen HPF (0-3)
[2018-05-23] MEDS ORDERED: Aspirin Chewable 81 MG TAB ONE (01:47)
[2018-05-23] MEDS ORDERED: hydrALAZINE 20 MG/ML VIAL SLOW IVP PRN (04:14)
[2018-05-23] MEDS ORDERED: hydrALAZINE 20 MG/ML VIAL ONE (04:27)
[2018-05-23] MEDS ORDERED: Fioricet 325/50/40 mg Tablet PO PRN (05:29)
[2018-05-23] MEDS ORDERED: Lisinopril 20 MG TAB PO SCH ×5 (05:45→21:00)
[2018-05-23] MEDS ORDERED: hydrALAZINE 25 MG TAB PO SCH ×3 (05:45→15:00)
[2018-05-23] MEDS ORDERED: Ibuprofen 100 MG/5 ML UDCUP PO SCH (05:45)
[2018-05-23] MEDS ORDERED: Ketorolac Tromethamine 30 MG/ML VIAL IVP SCH (05:45)
--- NOTE | 2018-05-23 06:02 | HP ---
CHIEF COMPLAINT: Chest pain. HISTORY OF PRESENT ILLNESS: The patient is a 37-year-old female who presents to the hospital with complaints of chest pain that has been going on for the past week. The patient stated that she ran out of her medications a long time ago and has only been taking some hydralazine as needed. The patient also states currently that she does have a headache and she also had shortness of breath initially when she came in. The patient denies any use of any drugs recently except for marijuana. The patient stated that she took cocaine earlier this month. PAST MEDICAL HISTORY: 1. Hypertension. She is noncompliant with her medications. 2. History of polysubstance abuse. 3. Morbid obesity. PAST SURGICAL HISTORY: She has never had any surgeries. SOCIAL HISTORY: She is currently abusing cocaine, however, states that her last use was earlier this month. She also uses marijuana. She smokes about 2-3 cigarettes a day. Drinks alcohol occasionally. She currently is a full code. FAMILY HISTORY: Positive for hypertension in her mother. ALLERGIES: NO KNOWN DRUG ALLERGIES. HOME MEDICATIONS: She only has hydralazine. She does not have any other prescription drugs. PHYSICAL EXAMINATION: VITAL SIGNS: As of the following. Temperature of 98.5, saturation 99% on room air, 16 respirations, 80 pulse, blood pressure initially when she came in was 220/137, currently it is 170/102. GENERAL: She is awake, alert, and oriented x3. Does not appear in any distress. CV: S1, S2 present. No murmurs, rubs, or gallops. LUNGS: Clear to auscultation. No rhonchi or wheezes noted. ABDOMEN: Obese, soft. Bowel sounds are present x2. EXTREMITIES: No edema. Pedal pulses are present x2. NEUROVASCULAR: No focal deficits noted. SKIN: No cuts, lesions, or bruises noted. HEENT: Normocephalic, atraumatic. No lymphadenopathy noted. LABORATORY RESULTS: As of the following; WBC of 4.6, hemoglobin of 12.0, hematocrit of 38.4, her platelets are 189. Chemistry, sodium of 140, potassium of 4.0, BUN of 14, creatinine 0.85. Her troponins time x3 were negative. She did have a chest x-ray done, which indicated no lobar consolidation, mild enlarged cardiac silhouette. ASSESSMENT AND PLAN: The patient is a very pleasant 37-year-old female who presents to the hospital with complaints of chest pain. 1. Hypertensive urgency. The patient's blood pressure was 220/137. The patient has been noncompliant with her medications. She ran out of her medications months ago. She has been taking as needed hydralazine that she has some left over from. The patient's last time echo last year indicated an EF of 50% to 55% and she also has severe tricuspid regurgitation. This was transmitted to the patient and explained the importance of blood pressure control. The patient stated that she did not have a prescription, she did not have any ways to refill her prescription. I have advised her to go to [facility] where she can see a primary care doctor and also get her prescription refilled. May recommend giving her at least a 3-month supply of her blood pressure medications. 2. Chest pain, shortness of breath. This is most likely secondary to hypertension. Her troponin x3 are negative. EKG, no acute changes. I have also advised her against cocaine use. She states that she only used earlier this month. However, she does use marijuana quite on a regular basis. 3. Obesity. Educated on weight loss, diet, and exercise. 4. Deep venous thrombosis prophylaxis. We will put the patient on subcu heparin. Again, if the patient's blood pressure improves, she may be discharged home later on today. I have explained to the patient multiple times the importance of medication compliance. 5. Also, she had a headache. I will give her some Fioricet and continue to monitor. Job ID: [id number]
[2018-05-23] MEDS ORDERED: Ibuprofen 200 MG TAB ONE (06:27)
[2018-05-23] MEDS ORDERED: hydrALAZINE 25 MG TAB ONE (06:27)
[2018-05-23] MEDS ORDERED: Lisinopril 10 MG TAB ONE (06:27)
[2018-05-23] MEDS ORDERED: cloNIDine 0.1 MG TAB PO PRN ×2 (06:48→22:12)
[2018-05-23] MEDS ORDERED: Morphine 2 MG/ML SYRINGE ONE (06:54)
[2018-05-23] MEDS ORDERED: Nitroglycerin 0.4 MG TAB 1 EACH ONE (06:54)
[2018-05-23] MEDS ORDERED: Nitroglycerin 0.4 MG TAB (25 Tab Bottle) SL SCH (07:00)
[2018-05-23] MEDS ORDERED: Morphine 4 MG/ML VIAL SLOW IVP SCH (07:00)
[2018-05-23] MEDS: Aspirin 325 MG TAB PO SCH (08:18)
[2018-05-23] MEDS ORDERED: cloNIDine 0.1 MG TAB ONE ×2 (08:19→17:17)
[2018-05-23] MEDS: cloNIDine 0.1 MG TAB PO SCH ×3 (08:35→20:36)
[2018-05-23] MEDS ORDERED: Hydrochlorothiazide 25 MG TAB PO SCH ×2 (09:00→16:57)
[2018-05-23] MEDS ORDERED: traMADol HCl 50 MG TAB ONE (09:22)
[2018-05-23] MEDS: Ferrous Sulfate 325 MG TAB PO SCH (09:27)
[2018-05-23] MEDS: traMADol HCl 50 MG TAB PO PRN (09:28)
[2018-05-23 09:33] VITALS: BMI 37.3
[2018-05-23] MEDS ORDERED: ALPRAZolam 0.5 MG TAB ONE (17:32)
[2018-05-23] MEDS: ALPRAZolam 0.25 MG TAB PO PRN (17:36)
[2018-05-23] MEDS: hydrALAZINE 25 MG TAB PO SCH ×2 (18:20→20:35)
[2018-05-23] MEDS: Lisinopril 20 MG TAB PO SCH (20:34)
[2018-05-24] MEDS: ALPRAZolam 0.25 MG TAB PO PRN (05:33)
[2018-05-24 08:10] VITALS: TEMP 98.2
[2018-05-24] MEDS: Lisinopril 20 MG TAB PO SCH (08:10)
[2018-05-24] MEDS: Aspirin 325 MG TAB PO SCH (08:10)
[2018-05-24] MEDS: hydrALAZINE 25 MG TAB PO SCH ×2 (08:11→15:32)
[2018-05-24] MEDS: Ferrous Sulfate 325 MG TAB PO SCH (08:11)
[2018-05-24] MEDS: cloNIDine 0.1 MG TAB PO SCH ×2 (08:11→15:32)
[2018-05-24] MEDS: traMADol HCl 50 MG TAB PO PRN (08:17)
[2018-05-24 15:31] VITALS: BP 125/71
--- NOTE | 2018-05-24 20:21 | DIS ---
DATE OF ADMISSION: 05/23/2018 DATE OF DISCHARGE: 05/24/2018 DISCHARGE DISPOSITION: Home. FOLLOWUP: Follow up with primary care physician at [facility]. The patient was extensively counseled to be compliant with her medications. ALLERGIES: NO KNOWN DRUG ALLERGIES. DISCHARGE MEDICATIONS: 1. Clonidine as needed for systolic blood pressure over 180. 2. Ferrous sulfate 325 mg daily. 3. Hydralazine 50 mg twice a day. 4. Hydrochlorothiazide 25 mg daily. 5. Lisinopril 20 mg b.i.d. Basic metabolic profile after 2 weeks is recommended. Primary care physician advised to follow. The patient was seen and examined on the day of discharge. Denies any new complaints. No chest pain, shortness of breath, or palpitations reported. Lifestyle modification was emphasized. BRIEF HOSPITAL COURSE: The patient is a 37-year-old female with hypertension, polysubstance abuse, and medication noncompliance, who presented to the hospital with chest discomfort. Her blood pressure in the emergency room was 220/137. Urine drug screen was positive for cocaine and cannabinoid. She was started on her home medication with clonidine with good improvement in her blood pressures. Her blood pressure today has been 130/91, 125/71, and 155/84. She was extensively counseled to be compliant with a blood pressure regimen. Chest x-ray was negative for infiltrate or edema. She appears stable for discharge. FINAL DIAGNOSES: 1. Hypertensive urgency secondary to noncompliance and cocaine abuse. 2. Shortness of breath secondary to #1, resolved. 3. Obesity with a BMI of 39. Lifestyle modification emphasized. 4. Tobacco dependence, the patient was counseled. 5. Polysubstance abuse. 6. Medication noncompliance. 7. History of iron deficiency. PLAN: Plan was discussed with the patient in detail. She stated understanding. Job ID: [id number]
== END 2018-05-24 17:27 | disposition home or self-care (01) | DRG 305 ==
LOC: ERS 21:09 → ERHOLD 05-23 01:54 → OBSVTOIN 05-23 01:54 → 2NO 05-23 18:34
PROVIDERS: ADMIT Internal Medicine; ATTEND Internal Medicine
DX: I16.0 Hypertensive urgency (principal); I10 Essential (primary) hypertension; F17.210 Nicotine dependence, cigarettes, uncomplicated; E66.9 Obesity, unspecified; F14.10 Cocaine abuse, uncomplicated; F12.10 Cannabis abuse, uncomplicated; Z68.39 Body mass index [BMI] 39.0-39.9, adult; Z91.14 Patient's other noncompliance with medication regimen; Z71.6 Tobacco abuse counseling
CPT/HCPCS: 36415; 71045; 80053; 80306; 81003; 81015; 83880; 84484; 85025; 93005; 94760; 96374; 96375; 96376; 99406; J0360; J2270

== ENCOUNTER 2018-12-01 15:21 | Emergency (ER) | payer SELFPAY ==
[2018-12-01] MEDS ORDERED: cloNIDine 0.1 MG TAB ONE (16:46)
[2018-12-01] MEDS ORDERED: Hydrochlorothiazide 25 MG TAB PO SCH (17:00)
== END 2018-12-01 17:04 | disposition home or self-care (01) ==
LOC: ERS 15:21
DX: I10 Essential (primary) hypertension (principal); D64.9 Anemia, unspecified; F32.9 Major depressive disorder, single episode, unspecified; F17.210 Nicotine dependence, cigarettes, uncomplicated; Z79.899 Other long term (current) drug therapy
CPT/HCPCS: 93005

== ENCOUNTER 2019-02-20 12:33 | Emergency (ER) | payer SELFPAY ==
[2019-02-20] MEDS ORDERED: cloNIDine 0.1 MG TAB ONE (13:32)
[2019-02-20] MEDS ORDERED: Acetaminophen 325 MG TAB ONE (13:32)
[2019-02-20] MEDS ORDERED: Ibuprofen 200 MG TAB ONE (14:42)
== END 2019-02-20 14:50 | disposition home or self-care (01) ==
LOC: ERS 12:33
DX: I10 Essential (primary) hypertension (principal); F32.9 Major depressive disorder, single episode, unspecified; F17.210 Nicotine dependence, cigarettes, uncomplicated
CPT/HCPCS: 99283

== ENCOUNTER 2020-04-08 11:06 | Emergency (ER) | payer SELFPAY ==
--- NOTE | 2020-04-08 14:10 | RAD ---
Chest one view HISTORY: Chest pain. COMPARISON: 05/22/2018. FINDINGS: Cardiac silhouette and pulmonary vasculature are unremarkable. Mediastinum is midline. No c onfluent airspace consolidation or evidence of pneumothorax. IMPRESSION : No abnormalities are demonstrated.
[2020-04-08 14:33] LABS: #Basophils 0.1 thou/uL (0.0-0.2); #Eosinphils 0.2 thou/uL (0.0-0.7); #Lymphocytes 1.8 thou/uL (1.20-3.40); #Monocytes 0.7 thou/uL (0.11-0.59); #Neutrophils 4.5 thou/uL (1.40-6.50); %Basophils 1.1 % (0.0-1.0); %Eosinophils 3.3 % (0.0-10.0); %Lymphocytes 24.6 % (21.0-51.0); %Monocytes 9.1 % (0.0-10.0); %Neutrophils 61.9 % (42.0-75.0); Hemoglobin 11.5 g/dL (12.0-16.0); Mean Corpuscular HGB CONC 30.8 g/dL (32.0-36.0); Mean Corpuscular Hemoglobin 23.6 pg (27.0-31.0); Mean Corpuscular Volume 76.9 fL (78.0-98.0); Mean Platelet Volume 11.2 fL (7.4-10.4); Platelet Count 202 thou/uL (130-400); RBC Distribution Width 14.8 % (11.5-14.5); Red Blood Cell (RBC) Count 4.86 mill/uL (4.20-5.40); White Blood Cell (WBC) Count 7.3 thou/uL (4.8-10.8)
[2020-04-08 15:02] LABS: ALT (SGPT) 13 U/L (8-55); AST (SGOT) 18 U/L (5-34); Albumin 3.8 g/dL (3.5-5.0); Alkaline Phosphatase 74 U/L (40-110); Anion Gap 13 mmol/L (10-20); BUN (Urea Nitrogen) 14 mg/dL (7.0-18.7); Bilirubin, Total 0.2 mg/dL (0.2-1.2); CK (CPK) 154 U/L (29-168); Calc. Creatinine Clearance 0 mL/min (70-130); Calcium 8.8 mg/dL (7.8-10.44); Carbon Dioxide 26 mmol/L (22-29); Chloride 106 mmol/L (98-107); Globulin 3.4 g/dL (2.4-3.5); Glucose 61 mg/dL (70-105); Protein, Total 7.2 g/dL (6.0-8.3); Sodium 141 mmol/L (136-145)
--- NOTE | 2020-04-12 15:21 | EKG ---
Test Reason : Blood Pressure : / mmHG Vent. Rate : 074 BPM Atrial Rate : 074 BPM P-R Int : 162 ms QRS Dur : 112 ms QT Int : 412 ms P-R-T Axes : 023 042 088 degrees QTc Int : 457 ms Normal sinus rhythm Possible Left atrial enlargement Cannot rule out Anterior infarct , age undetermined Abnormal ECG Confirmed by LISSTET EVANS DO ([id number]), primer expeditor and drier ANKUR SERRANO ([id number]) on 04/12/2020 3:21:10 PM Referred By: Confirmed By:LISSETT EVANS DO
== END 2020-04-08 15:40 | disposition home or self-care (01) ==
LOC: ERS 11:06
DX: I10 Essential (primary) hypertension (principal); F17.210 Nicotine dependence, cigarettes, uncomplicated; Z79.899 Other long term (current) drug therapy
CPT/HCPCS: 36415; 71045; 80053; 82550; 84484; 85025; 93005

== ENCOUNTER 2020-08-17 13:45 | Emergency (ER) | payer SELFPAY ==
[2020-08-17 14:36] LABS: Hemoglobin 13.7 g/dL (12.0-16.0); Mean Corpuscular HGB CONC 31.8 g/dL (32.0-36.0); Mean Corpuscular Hemoglobin 23.3 pg (27.0-31.0); Mean Corpuscular Volume 73.3 fL (78.0-98.0); Mean Platelet Volume 11.7 fL (7.4-10.4); Platelet Count 249 thou/uL (130-400); RBC Distribution Width 15.1 % (11.5-14.5); Red Blood Cell (RBC) Count 5.89 mill/uL (4.20-5.40); White Blood Cell (WBC) Count 9.4 thou/uL (4.8-10.8)
[2020-08-17 14:54] LABS: ALT (SGPT) 9 U/L (8-55); AST (SGOT) 15 U/L (5-34); Albumin 4.1 g/dL (3.5-5.0); Alkaline Phosphatase 84 U/L (40-110); Anion Gap 17 mmol/L (10-20); BUN (Urea Nitrogen) 9 mg/dL (7.0-18.7); Bilirubin, Total 0.4 mg/dL (0.2-1.2); Calc. Creatinine Clearance 0 mL/min (70-130); Calcium 9.3 mg/dL (7.8-10.44); Carbon Dioxide 23 mmol/L (22-29); Chloride 99 mmol/L (98-107); Globulin 4.1 g/dL (2.4-3.5); Glucose 118 mg/dL (70-105); Lipase 16 U/L (8-78); Potassium 3.8 mmol/L (3.5-5.1); Protein, Total 8.2 g/dL (6.0-8.3); Sodium 135 mmol/L (136-145)
[2020-08-17 14:55] LABS: Hypochromia SLIGHT = 6-15 cells (100X) (0-5/hpf); Large Platelets SLIGHT; Lymphocytes 15 % (21-51); MDiff Complete? YES; Microcytosis SLIGHT = 6-15 cells (100X) (0-5/hpf); Monocytes 7 % (0-10); Neutrophil 73 % (42-75); Platelet Morphology Comment Appears Adequate; Reactive Lymphocytes 5 % (0-10)
[2020-08-17] MEDS ORDERED: Ketorolac Tromethamine 30 MG/ML VIAL ONE (15:05)
[2020-08-17 15:55] LABS: Bacteria/HPF None Seen HPF (None Seen); Bilirubin Negative (Negative); Blood, Urine Negative (Negative); Clarity Clear (Clear); Glucose, Urine (Dipstick) Normal (Negative); Ketone, Urine 100 mg/dL (Negative); Leukocyte Negative Leu/uL (Negative); Nitrite Negative (Negative); Pregnancy Test - Urine (BHCG) Negative (Negative); Pregu Control Background? CLEAR/WHITE (CLR/WHITE); Pregu Control Bar Appear? YES (CONTROL BAR); Protein, Urine (Dipstick) 100 mg/dL (Neg-Trace); RBC/HPF 0-3 HPF (0-3); Specific Gravity 1.032 (1.002-1.036); Specific Gravity, Urine 1.032 (1.002-1.036); Urobilinogen 6 mg/dL (Less than 2); WBC/HPF 0-3 HPF (0-3); pH, Urine 7.5 (5.0-9.0)
== END 2020-08-17 16:18 | disposition home or self-care (01) ==
LOC: ERS 13:45
DX: I10 Essential (primary) hypertension (principal); R11.0 Nausea; F17.210 Nicotine dependence, cigarettes, uncomplicated
CPT/HCPCS: 36415; 51701; 80053; 81003; 81015; 81025; 83690; 84484; 85025; 96374; J1885

== ENCOUNTER 2021-12-26 08:55 | Inpatient (IN) | payer SELFPAY ==
[2021-12-26 10:22] LABS: ALT (SGPT) 9 U/L (8-55); AST (SGOT) 17 U/L (5-34); Albumin 3.9 g/dL (3.5-5.0); Alkaline Phosphatase 65 U/L (40-110); Anion Gap 14 mmol/L (10-20); BUN (Urea Nitrogen) 11 mg/dL (7.0-18.7); Bilirubin, Total 0.2 mg/dL (0.2-1.2); Calc. Creatinine Clearance 0 mL/min (70-130); Calcium 8.4 mg/dL (7.8-10.44); Carbon Dioxide 23 mmol/L (22-29); Chloride 108 mmol/L (98-107); Estimated GFR 91; Globulin 3.4 g/dL (2.4-3.5); Glucose 76 mg/dL (70-105); Hemoglobin 9.3 g/dL (12.0-16.0); Mean Corpuscular HGB CONC 29.2 g/dL (32.0-36.0); Mean Corpuscular Hemoglobin 19.5 pg (27.0-31.0); Mean Corpuscular Volume 66.6 fL (78.0-98.0); Mean Platelet Volume 8.9 fL (7.4-10.4); Platelet Count 212 thou/uL (130-400); Potassium 4.1 mmol/L (3.5-5.1); Protein, Total 7.3 g/dL (6.0-8.3); RBC Distribution Width 18.4 % (11.5-14.5); Red Blood Cell (RBC) Count 4.78 mill/uL (4.20-5.40); Sodium 141 mmol/L (136-145); White Blood Cell (WBC) Count 5.2 thou/uL (4.8-10.8)
[2021-12-26] MEDS ORDERED: methylPREDNISolone Sod Succ/PF 125 MG/2 ML VIAL ONE (10:29)
[2021-12-26] MEDS ORDERED: Famotidine/PF 20 mg/2ml Vial ONE (10:29)
[2021-12-26] MEDS ORDERED: diphenhydrAMINE 50 MG/ML VIAL ONE (10:29)
[2021-12-26 10:33] LABS: #Eosinphils 0.2 thou/uL (0.0-0.7); #Lymphocytes 1.7 thou/uL (1.20-3.40); #Monocytes 0.4 thou/uL (0.11-0.59); #Neutrophils 2.9 thou/uL (1.40-6.50); %Basophils 0.3 % (0.0-1.0); %Eosinophils 4.2 % (0.0-10.0); %Lymphocytes 32.6 % (21.0-51.0); %Monocytes 7.1 % (0.0-10.0); %Neutrophils 55.9 % (42.0-75.0); Elliptocytes SLIGHT = 2-5 cells (100X) (0-1/hpf); Giant Platelets SLIGHT; Hypochromia SLIGHT = 6-15 cells (100X) (0-5/hpf); MDiff Complete? YES; Platelet Morphology Comment Appears Adequate
[2021-12-26 11:29] LABS: BHCG - Serum Negative (NEGATIVE); Pregs Control Background? CLEAR/WHITE (CLR/WHITE); Pregs Control Bar Appear? YES (CONTROL BAR)
[2021-12-26] MEDS ORDERED: Ondansetron PF 4 MG/2 ML Vial IVP PRN (13:02)
[2021-12-26] MEDS ORDERED: Labetalol HCl 100 MG/20 ML VIAL SLOW IVP PRN (13:02)
[2021-12-26] MEDS ORDERED: Amlodipine 10 MG TAB PO SCH (13:02)
[2021-12-26] MEDS ORDERED: hydrALAZINE 25 MG TAB PO SCH ×2 (13:02→21:00)
[2021-12-26] MEDS: Nicotine 14 MG PATCH TD SCH (13:24)
[2021-12-26] MEDS: methylPREDNISolone Sod Succ 40 MG VIAL IVP SCH ×2 (13:24→19:20)
[2021-12-26] MEDS: diphenhydrAMINE 50 MG/ML VIAL IVP SCH (13:24)
[2021-12-26 13:42] VITALS: BMI 34.9
[2021-12-26] MEDS ORDERED: Benzocaine (Dental) 7 GM TUBE TOP PRN (14:29)
[2021-12-26] MEDS ORDERED: cloNIDine 0.1 MG TAB PO PRN (14:43)
[2021-12-26] MEDS ORDERED: NIFEdipine XL 60 MG TAB PO SCH (14:45)
[2021-12-26] MEDS ORDERED: cloNIDine 0.1 MG TAB PO SCH (14:45)
[2021-12-26] MEDS ORDERED: hydrALAZINE 20 MG/ML VIAL SLOW IVP SCH (17:00)
[2021-12-26 18:44] LABS: Troponin I Less than 0.010 ng/mL (< 0.028)
[2021-12-26] MEDS: Famotidine 20 MG TAB PO SCH (20:39)
[2021-12-26 21:10] LABS: Troponin I 0.053 ng/mL (< 0.028)
[2021-12-26 23:14] LABS: Troponin I 0.099 ng/mL (< 0.028)
[2021-12-27] MEDS: methylPREDNISolone Sod Succ 40 MG VIAL IVP SCH ×2 (01:00→06:09)
[2021-12-27] MEDS: diphenhydrAMINE 50 MG/ML VIAL IVP SCH (01:00)
[2021-12-27] MEDS: Nitroglycerin 2% Ointment 1 INCH/1 GM Packet TOP SCH ×3 (05:40→22:40)
[2021-12-27 05:44] LABS: Mean Corpuscular HGB CONC 29.9 g/dL (32.0-36.0); Mean Corpuscular Hemoglobin 19.8 pg (27.0-31.0); Mean Corpuscular Volume 66.3 fL (78.0-98.0); Mean Platelet Volume 8.6 fL (7.4-10.4); Platelet Count 204 thou/uL (130-400); RBC Distribution Width 18.2 % (11.5-14.5); Red Blood Cell (RBC) Count 4.56 mill/uL (4.20-5.40)
[2021-12-27 05:45] LABS: #Lymphocytes 0.6 thou/uL (1.20-3.40); #Monocytes 0.1 thou/uL (0.11-0.59); #Neutrophils 11.4 thou/uL (1.40-6.50); %Monocytes 0.8 % (0.0-10.0); %Neutrophils 94.1 % (42.0-75.0)
[2021-12-27 05:55] LABS: Anion Gap 15 mmol/L (10-20); BUN (Urea Nitrogen) 12 mg/dL (7.0-18.7); Calc. Creatinine Clearance 161 mL/min (70-130); Calcium 8.7 mg/dL (7.8-10.44); Carbon Dioxide 22 mmol/L (22-29); Chloride 105 mmol/L (98-107); Estimated GFR 93; Glucose 153 mg/dL (70-105); Potassium 4.2 mmol/L (3.5-5.1); Sodium 138 mmol/L (136-145)
[2021-12-27 06:04] LABS: Anisocytosis SLIGHT = 6-15 cells (100X) (0-5/hpf); Band 8 % (5-11); Elliptocytes SLIGHT = 2-5 cells (100X) (0-1/hpf); Hypochromia MODERATE=16-30 cells (100X) (0-5/hpf); Lymphocytes 5 % (21-51); MDiff Complete? YES; Neutrophil 87 % (42-75); Platelet Morphology Comment Appears Adequate; Polychromasia SLIGHT = 2-3 cells (100X) (0-2/hpf); Troponin I 0.526 ng/mL (< 0.028)
[2021-12-27] MEDS ORDERED: Aspirin 325 mg Enteric Coated Tablet PO SCH (08:00)
[2021-12-27] MEDS: Famotidine 20 MG TAB PO SCH ×2 (08:11→20:16)
[2021-12-27] MEDS: Hydrochlorothiazide 25 MG TAB PO SCH (08:14)
[2021-12-27 08:42] LABS: Amphetamine Not Detected (NotDetected); Barbiturates Screen Not Detected (NotDetected); Benzodiazepine Screen Not Detected (NotDetected); Cocaine Metabolite Screen Detected (NotDetected); Methadone Not Detected (NotDetected); Methamphetamine Not Detected (NotDetected); Opiate Screen Not Detected (NotDetected); Oxycodone Screen Not Detected (NotDetected); Phencyclidine (PCP) Not Detected (NotDetected); THC/Cannabinoid Screen Detected (NotDetected); Tricyclic Screen Not Detected (NotDetected)
[2021-12-27 08:52] LABS: Troponin I 0.565 ng/mL (< 0.028)
[2021-12-27] MEDS ORDERED: Amlodipine 5 MG TAB PO SCH (09:00)
[2021-12-27] MEDS: NIFEdipine XL 60 MG TAB PO SCH (10:21)
[2021-12-27] MEDS: Enoxaparin Sodium 40 MG/0.4 ML SYRINGE SC SCH (10:22)
[2021-12-27] MEDS: Nicotine 14 MG PATCH TD SCH ×2 (13:10→20:17)
[2021-12-28] MEDS ORDERED: Acetaminophen 325 MG TAB PO PRN (00:29)
[2021-12-28] MEDS: Nitroglycerin 2% Ointment 1 INCH/1 GM Packet TOP SCH ×3 (05:59→20:33)
[2021-12-28] MEDS: Hydrochlorothiazide 25 MG TAB PO SCH (09:00)
[2021-12-28] MEDS: Enoxaparin Sodium 40 MG/0.4 ML SYRINGE SC SCH (09:00)
[2021-12-28] MEDS: NIFEdipine XL 60 MG TAB PO SCH (09:00)
[2021-12-28] MEDS: Famotidine 20 MG TAB PO SCH ×2 (09:00→20:31)
[2021-12-28] MEDS ORDERED: Labetalol HCl 100 MG TAB PO SCH ×2 (12:45→21:00)
[2021-12-28] MEDS: Nicotine 14 MG PATCH TD SCH (12:53)
[2021-12-28 16:05] VITALS: TEMP 97.5
[2021-12-28 20:33] VITALS: BP 170/92
== END 2021-12-28 21:00 | disposition left against medical advice (07) | DRG 915 ==
LOC: ERS 08:55 → MSONC 10:54 → 2SW 19:35
PROVIDERS: ADMIT Internal Medicine; ATTEND Family Medicine
DX: T78.3XXA Angioneurotic edema, initial encounter (principal); I21.A1 Myocardial infarction type 2; I42.9 Cardiomyopathy, unspecified; I16.9 Hypertensive crisis, unspecified; F32.A Depression, unspecified; F17.210 Nicotine dependence, cigarettes, uncomplicated; I16.0 Hypertensive urgency; I07.1 Rheumatic tricuspid insufficiency; D64.9 Anemia, unspecified; F19.10 Other psychoactive substance abuse, uncomplicated; T46.4X5A Adverse effect of angiotensin-converting-enzyme inhibitors, initial encounter; Z20.822 Contact with and (suspected) exposure to COVID-19; Z79.899 Other long term (current) drug therapy; Z91.14 Patient's other noncompliance with medication regimen; Y92.9 Unspecified place or not applicable
CPT/HCPCS: 36415; 36416; 80048; 80053; 80306; 84484; 84703; 85025; 93005; 93010; 93306; 96374; 96375; J0360; J1200; J2405; J2920; J2930; S0028; U0003; U0005

== ENCOUNTER 2022-05-31 20:33 | Emergency (ER) | payer SELFPAY ==
[2022-05-31 21:24] LABS: #Basophils 0.1 thou/uL (0.0-0.2); #Eosinphils 0.4 thou/uL (0.0-0.7); #Lymphocytes 1.8 thou/uL (1.20-3.40); #Monocytes 0.9 thou/uL (0.11-0.59); #Neutrophils 4.4 thou/uL (1.40-6.50); %Lymphocytes 24.2 % (21.0-51.0); %Neutrophils 57.9 % (42.0-75.0); Hemoglobin 9.3 g/dL (12.0-16.0); Mean Corpuscular HGB CONC 31.6 g/dL (32.0-36.0); Mean Corpuscular Hemoglobin 23.3 pg (27.0-31.0); Mean Corpuscular Volume 73.6 fl (78.0-98.0); Mean Platelet Volume 11.5 fL (7.4-10.4); Platelet Count 185 10x3/uL (130-400); RBC Distribution Width 16.2 % (11.5-14.5); Red Blood Cell (RBC) Count 4.01 mill/uL (4.20-5.40); White Blood Cell (WBC) Count 7.6 10x3/uL (4.8-10.8)
[2022-05-31 21:35] LABS: BHCG - Serum Negative (NEGATIVE); Pregs Control Background? CLEAR/WHITE (CLR/WHITE); Pregs Control Bar Appear? YES (CONTROL BAR)
[2022-05-31 21:45] LABS: ALT (SGPT) 16 U/L (8-55); AST (SGOT) 25 U/L (5-34); Albumin 3.9 g/dL (3.5-5.0); Alkaline Phosphatase 72 U/L (40-110); Anion Gap 10 mmol/L (10-20); BUN (Urea Nitrogen) 14 mg/dL (7.0-18.7); Bilirubin, Total 0.2 mg/dL (0.2-1.2); Calc. Creatinine Clearance 0 mL/min (70-130); Calcium 8.6 mg/dL (7.8-10.44); Carbon Dioxide 23 mmol/L (22-29); Chloride 106 mmol/L (98-107); Estimated GFR 57; Glucose 130 mg/dL (70-105); Potassium 4.1 mmol/L (3.5-5.1); Protein, Total 6.9 g/dL (6.0-8.3); Sodium 135 mmol/L (136-145)
[2022-05-31] MEDS ORDERED: Aspirin Chewable 81 MG TAB ONE (22:40)
[2022-05-31] MEDS ORDERED: Acetaminophen 500 MG TAB ONE (22:58)
== END 2022-05-31 23:20 | disposition home or self-care (01) ==
LOC: ERS 20:33
DX: I10 Essential (primary) hypertension (principal); F14.10 Cocaine abuse, uncomplicated; F17.210 Nicotine dependence, cigarettes, uncomplicated
CPT/HCPCS: 36415; 71045; 80053; 83880; 84484; 84703; 85025; 93005

== ENCOUNTER 2023-09-28 01:08 | Inpatient (IN) | payer OTHER ==
[2023-09-28] MEDS ORDERED: hydrALAZINE 20 MG/ML VIAL ONE (01:38)
[2023-09-28] MEDS ORDERED: Amlodipine 5 MG TAB ONE (01:38)
[2023-09-28] MEDS ORDERED: Metoprolol Tartrate 25 MG TAB ONE (01:38)
[2023-09-28 02:00] LABS: #Basophils 0.03 10x3/uL (0.0-0.2); %Basophils 0.7 % (0.0-1.0); %Eosinophils 3.9 % (0.0-10.0); %Lymphocytes 36.6 % (21.0-51.0); %Monocytes 7.6 % (0.0-10.0); Hematocrit 36.2 % (36.0-47.0); Hemoglobin 11.3 g/dL (12.0-16.0); Mean Corpuscular HGB CONC 31.2 g/dL (32.0-36.0); Mean Corpuscular Hemoglobin 22.9 pg (27.0-31.0); Mean Corpuscular Volume 73.3 fL (78.0-98.0); Mean Platelet Volume 10.5 fL (7.4-10.4); Platelet Count 270 10x3/uL (130-400); RBC Distribution Width 14.6 % (11.5-14.5); Red Blood Cell (RBC) Count 4.94 mill/uL (4.20-5.40)
[2023-09-28 02:14] LABS: ALT (SGPT) 7 U/L (8-55); AST (SGOT) 19 U/L (5-34); Albumin 3.6 g/dL (3.5-5.0); Alkaline Phosphatase 76 U/L (40-110); Anion Gap 13 mmol/L (10-20); BUN (Urea Nitrogen) 13 mg/dL (7.0-18.7); Bilirubin, Total 0.3 mg/dL (0.2-1.2); Calc. Creatinine Clearance 0 mL/min (70-130); Calcium 9.4 mg/dL (7.8-10.44); Carbon Dioxide 23 mmol/L (22-29); Chloride 106 mmol/L (98-107); Estimated GFR 66; Globulin 4.2 g/dL (2.4-3.5); Glucose 87 mg/dL (70-105); Lipase 36 U/L (8-78); Magnesium 1.9 mg/dL (1.6-2.6); Protein, Total 7.8 g/dL (6.0-8.3); Sodium 138 mmol/L (136-145)
[2023-09-28 02:17] LABS: Acetaminophen Less than 10 mcg/mL (10.0-30.0); Alcohol Less than 10.0 mg/dL (Less than 10); Salicylate Less than 8.0 mg/dL (15.0-30.0)
[2023-09-28 02:20] LABS: Troponin I 0.015 ng/mL (< 0.028)
[2023-09-28 02:22] LABS: Microcytosis SLIGHT = 6-15 cells HPF (0-5); Ovalocytes SLIGHT = 2-5 cells HPF (0-1); Platelet Adequacy Comment Platelets Normal; Poikilocytosis SLIGHT = 6-15 cells HPF (0-5); Polychromasia SLIGHT = 2-3 cells HPF (0-2); Target Cells SLIGHT = 2-5 cells HPF (0-1)
[2023-09-28] MEDS ORDERED: niCARdipine 25 MG/10 ML SDV ONE (02:22)
[2023-09-28] MEDS ORDERED: Ondansetron PF 4 MG/2 ML Vial IVP PRN (03:19)
[2023-09-28] MEDS ORDERED: niCARdipine 25 MG in Sodium Chloride 0.9% 250 ML 250 ML IVPB SCH (03:45)
[2023-09-28 04:17] LABS: Amphetamine Detected (NotDetected); Barbiturates Screen Not Detected (NotDetected); Benzodiazepine Screen Not Detected (NotDetected); Cocaine Metabolite Screen Detected (NotDetected); Methadone Not Detected (NotDetected); Methamphetamine Detected (NotDetected); Opiate Screen Not Detected (NotDetected); Oxycodone Screen Not Detected (NotDetected); Phencyclidine (PCP) Not Detected (NotDetected); THC/Cannabinoid Screen Detected (NotDetected); Tricyclic Screen Not Detected (NotDetected)
[2023-09-28 04:26] VITALS: BMI 33.8
[2023-09-28] MEDS: Magnesium 2 GM/50 ML(in water) 2 GM in Premix 1 BAG IVPB SCH (05:56)
[2023-09-28] MEDS: niCARdipine 25 MG in Sodium Chloride 0.9% 250 ML 250 ML IVPB SCH (05:56)
[2023-09-28 06:47] LABS: #Basophils 0.03 10x3/uL (0.0-0.2); %Basophils 0.5 % (0.0-1.0); %Eosinophils 3.7 % (0.0-10.0); %Lymphocytes 35.1 % (21.0-51.0); %Neutrophils 53.5 % (42.0-75.0); Hemoglobin 11.8 g/dL (12.0-16.0); Mean Corpuscular HGB CONC 31.1 g/dL (32.0-36.0); Mean Corpuscular Volume 74.1 fL (78.0-98.0); Mean Platelet Volume 10.4 fL (7.4-10.4); Platelet Count 286 10x3/uL (130-400); RBC Distribution Width 14.8 % (11.5-14.5); Red Blood Cell (RBC) Count 5.13 mill/uL (4.20-5.40)
[2023-09-28 06:55] LABS: Anion Gap 14 mmol/L (10-20); BUN (Urea Nitrogen) 11 mg/dL (7.0-18.7); Calc. Creatinine Clearance 132 mL/min (70-130); Calcium 9.2 mg/dL (7.8-10.44); Carbon Dioxide 24 mmol/L (22-29); Chloride 106 mmol/L (98-107); Estimated GFR 77; Glucose 95 mg/dL (70-105); Potassium 3.8 mmol/L (3.5-5.1); Sodium 140 mmol/L (136-145)
[2023-09-28] MEDS: Hydrochlorothiazide 25 MG TAB PO SCH ×2 (07:48→16:51)
[2023-09-28] MEDS: Enoxaparin 40 MG (0.4 mL) SYRINGE SC SCH (07:48)
[2023-09-28] MEDS: hydrALAZINE 25 MG TAB PO SCH ×2 (10:56→20:57)
[2023-09-28] MEDS: Amlodipine 10 MG TAB PO SCH (20:57)
[2023-09-28] MEDS ORDERED: hydrALAZINE 25 MG TAB PO SCH (21:00)
[2023-09-29 05:08] LABS: #Basophils 0.04 10x3/uL (0.0-0.2); %Basophils 0.6 % (0.0-1.0); %Eosinophils 3.6 % (0.0-10.0); %Lymphocytes 40.5 % (21.0-51.0); %Neutrophils 50.1 % (42.0-75.0); Hematocrit 40.9 % (36.0-47.0); Hemoglobin 12.4 g/dL (12.0-16.0); Mean Corpuscular HGB CONC 30.3 g/dL (32.0-36.0); Mean Corpuscular Volume 75.7 fL (78.0-98.0); Mean Platelet Volume 10.6 fL (7.4-10.4); Platelet Count 350 10x3/uL (130-400)
[2023-09-29 05:28] LABS: Anion Gap 14 mmol/L (10-20); BUN (Urea Nitrogen) 17 mg/dL (7.0-18.7); Calc. Creatinine Clearance 104 mL/min (70-130); Calcium 9.7 mg/dL (7.8-10.44); Carbon Dioxide 25 mmol/L (22-29); Chloride 101 mmol/L (98-107); Estimated GFR 58; Glucose 89 mg/dL (70-105); Potassium 4.1 mmol/L (3.5-5.1); Sodium 136 mmol/L (136-145)
[2023-09-29] MEDS: hydrALAZINE 20 MG/ML VIAL SLOW IVP PRN (08:21)
[2023-09-29] MEDS: Acetaminophen 325 MG TAB PO PRN (08:42)
[2023-09-29] MEDS: Lorazepam 2 MG/ML VIAL SLOW IVP SCH (10:50)
[2023-09-29] MEDS: cloNIDine 0.1 MG TAB PO SCH (10:51)
[2023-09-29] MEDS: Metoprolol Tartrate 25 MG TAB PO SCH (14:07)
[2023-09-30 05:37] LABS: #Basophils Less than 0.03 10x3/uL (0.0-0.2); %Basophils 0.3 % (0.0-1.0); %Eosinophils 0.6 % (0.0-10.0); %Lymphocytes 14.5 % (21.0-51.0); %Monocytes 7.2 % (0.0-10.0); Hematocrit 40.1 % (36.0-47.0); Hemoglobin 12.4 g/dL (12.0-16.0); Mean Corpuscular HGB CONC 30.9 g/dL (32.0-36.0); Mean Corpuscular Hemoglobin 22.5 pg (27.0-31.0); Mean Corpuscular Volume 72.6 fL (78.0-98.0); Mean Platelet Volume 11.2 fL (7.4-10.4); Platelet Count 353 10x3/uL (130-400); Red Blood Cell (RBC) Count 5.52 mill/uL (4.20-5.40)
[2023-09-30 06:09] LABS: Anion Gap 15 mmol/L (10-20); BUN (Urea Nitrogen) 23 mg/dL (7.0-18.7); Calc. Creatinine Clearance 94 mL/min (70-130); Calcium 9.1 mg/dL (7.8-10.44); Carbon Dioxide 23 mmol/L (22-29); Chloride 100 mmol/L (98-107); Estimated GFR 52; Glucose 98 mg/dL (70-105); Potassium 4.2 mmol/L (3.5-5.1); Sodium 134 mmol/L (136-145)
[2023-09-30] MEDS: cloNIDine 0.1 MG TAB PO SCH (08:23)
[2023-09-30] MEDS: Lactated Ringer's 1,000 ML IV SCH (11:01)
[2023-09-30 12:29] LABS: Anion Gap 15 mmol/L (10-20); BUN (Urea Nitrogen) 22 mg/dL (7.0-18.7); Calc. Creatinine Clearance 115 mL/min (70-130); Calcium 9.4 mg/dL (7.8-10.44); Carbon Dioxide 22 mmol/L (22-29); Chloride 102 mmol/L (98-107); Estimated GFR 66; Glucose 95 mg/dL (70-105); Potassium 4.3 mmol/L (3.5-5.1); Sodium 135 mmol/L (136-145)
[2023-09-30 15:07] VITALS: BP 134/78; TEMP 97.9
== END 2023-09-30 15:22 | DRG 305 ==
LOC: ERS 01:08 → EEVIPCON 02:57 → CCU 02:57 → 2NO 09-29 23:52
PROVIDERS: ADMIT Internal Medicine; ATTEND Hospitalist
DX: I16.0 Hypertensive urgency (principal); I16.1 Hypertensive emergency; N17.9 Acute kidney failure, unspecified; I10 Essential (primary) hypertension; F32.A Depression, unspecified; Z88.8 Allergy status to other drugs, medicaments and biological substances; F17.210 Nicotine dependence, cigarettes, uncomplicated; F19.10 Other psychoactive substance abuse, uncomplicated; Z91.148 Patient's other noncompliance with medication regimen for other reason
CPT/HCPCS: 36415; 70450; 71045; 80048; 80053; 80306; 80307; 83690; 83735; 83880; 84443; 84484; 85025; 86140; 93005; 93010; 96365; 96366; 96375; J0360; J1650; J2060; J3475; J7050; J7120